=== PATIENT | female | born 1950 | race Caucasian/White ===

== ENCOUNTER 2016-12-19 12:26 | Inpatient (IN) | payer MEDICARE, MEDICAID ==
[2016-12-19 12:46] VITALS: BMI 37.2
--- NOTE | 2016-12-19 12:54 | ED PDOC ---
Arrival/HPI - General Chief Complaint: Chest Pain Time Seen by Provider: 12/19/16 12:40 Historian: Patient - History of Present Illness Narrative History of Present Illness (Text): 12/19/16 12:30 A 66 year old female, whose past medical history includes hypertension, presents to the emergency department complaining of sudden onset chest pain associated with shortness of breath. Patient states shortly after receiving epidural injection for her back pain the symptoms developed. As per Dr. Armando' s reports the patient received lidocaine with marcaine injection. Patient denies any fever, or other complaints at this time. PMD: Dr. Coelho Time/Duration: Prior to Arrival Symptom Onset: Sudden Symptom Course: Unchanged Quality: Other Activities at Onset: Rest Context: Other Past Medical History - Provider Review Nursing Documentation Reviewed: Yes - Cardiac Hx Cardiac Disorders: Yes Hx Hypertension: Yes - Pulmonary Hx Respiratory Disorders: No - Neurological Hx Neurological Disorder: No - HEENT Hx HEENT Disorder: No - Renal Hx Renal Disorder: No - Endocrine/Metabolic Hx Endocrine Disorders: Yes Hx Diabetes Mellitus Type 2: Yes - Hematological/Oncological Hx Blood Disorders: No - Integumentary Hx Dermatological Disorder: No - Musculoskeletal/Rheumatological Hx Musculoskeletal Disorders: Yes - Gastrointestinal Hx Gastrointestinal Disorders: No - Genitourinary/Gynecological Hx Genitourinary Disorders: No - Psychiatric Hx Psychophysiologic Disorder: No Hx Depression: No Hx Emotional Abuse: No Hx Physical Abuse: No Hx Substance Use: No - Surgical History Hx Section: Yes Hx Hysterectomy: Yes - Suicidal Assessment Feels Threatened In Home Enviroment: No Family/Social History - Physician Review Nursing Documentation Reviewed: Yes Family/Social History: Unknown Family HX Smoking Status: Unknown If Ever Smoked Hx Alcohol Use: No Hx Substance Use: No Hx Substance Use Treatment: No Allergies/Home Meds Allergies/Adverse Reactions: Allergies No Known Allergies Allergy (Verified 12/19/16 12:27) Home Medications: Home Meds Medication Instructions Recorded Confirmed Aspirin [Aspirin Chewable] 81 mg PO DAILY 12/19/16 12/19/16 Atenolol [Tenormin] 25 mg PO DAILY 12/19/16 12/19/16 Clopidogrel [Plavix] 75 mg PO DAILY 12/19/16 Furosemide [Lasix] 20 mg PO DAILY 12/19/16 12/19/16 Insulin Lispro Mix 75/25 [HumaLOG 50 units SC BID 12/19/16 12/19/16 Mix 75/25] Isosorbide Mononitrate [Imdur] 30 mg PO DAILY 12/19/16 12/19/16 MetFORMIN [glucoPHAGE] 500 mg PO BID 12/19/16 12/19/16 Naproxen [Naprosyn] 375 mg PO BID 12/19/16 12/19/16 Pregabalin [Lyrica] 50 mg PO BID 12/19/16 12/19/16 SITagliptin [Januvia] 100 mg PO DAILY 12/19/16 12/19/16 Spironolactone [Aldactone] 50 mg PO DAILY 12/19/16 12/19/16 amLODIPine [Norvasc] 10 mg PO DAILY 12/19/16 12/19/16 Physical Exam - Physical Exam Narrative Physical Exam (Text): - Review of Systems Constitutional: Normal. absent: Fatigue, Weight Change, Fevers Eyes: Normal ENT: Normal Respiratory: Shortness of breath. absent: Cough, Sputum Cardiovascular: Chest pain. absent: Palpitations, Syncope Gastrointestinal: Normal absent: Abdominal pain, Diarrhea, Nausea, Vomiting Genitourinary: Normal. absent: Dysuria, Frequency, Hematuria Musculoskeletal: Normal. absent: Arthralgias, Back Pain, Neck Pain Skin: Normal Neurological: Normal absent: Focal Weakness Endocrine: Normal Hemo/Lymphatic: Normal Psychiatric: Normal - Physical exam Patient appears age appropriate, speaking full sentences without difficulty - Systems Exam Head: Present: Atraumatic, Normocephalic Pupils: Present: PERRL Extraocular Muscles: Present: EOMI Conjunctiva: Present: Normal Mouth: Present: Moist Mucous Membranes Neck: Present: Normal Range of Motion. No: MIDLINE TENDERNESS, Paraspinal Tenderness Respiratory/Chest: Present: Clear to Auscultation, Good Air Exchange. No: Respiratory Distress, Accessory Muscle Use, Tachypneic Cardiovascular: Present: Regular Rate and Rhythm, Normal S1, S2, Peripheral Pulses Present. No: Murmurs Abdomen: Present: Normal Bowel Sounds, No: Tenderness, Peritoneal Signs, Rebound, Guarding, Distention Back: Present: Normal Inspection. No: Midline Tenderness, Paraspinal Tenderness Upper Extremity: Present: Normal Inspection. No: Cyanosis, Edema Lower Extremity: Present: Normal Inspection. No: Edema Neurological: Present: GCS=15, Speech Normal, cranial nerves II through XII fully intact with no cerebellar abnormality, neuro-sensory fully intact. No focal neurological deficits. Skin: Present: Warm, Dry, Normal Color. No: Rashes Lymphatic: Present: OX3, NI, NC Psychiatric: Present: Alert, Oriented x 3, Normal Insight, Normal Concentration Vital Signs Reviewed: Yes Vital Signs Temp Pulse Pulse Resp BP Pulse Ox 12/19/16 17:50 99.2 F 92 H 18 138/88 96 12/19/16 17:31 96 H 149/65 94 L 12/19/16 16:46 96 H 20 119/64 97 12/19/16 15:18 103 H 18 140/70 97 12/19/16 14:30 110 H 20 131/77 97 12/19/16 13:59 103.2 F H 12/19/16 12:59 103.2 F H 12/19/16 12:58 103.2 F H 124 H 20 129/75 94 L 12/19/16 12:35 120 H 12/19/16 12:33 100.4 F H 122 H 20 141/60 96 Temperature: Febrile Blood Pressure: Normal Pulse: Tachycardic Respiratory Rate: Normal Appearance: Positive for: Well-Appearing, Non-Toxic, Comfortable Pain Distress: None Mental Status: Positive for: Alert and Oriented X 3 Finger Stick Blood Glucose: 187 Medical Decision Making ED Course and Treatment: 12/19/16 12:30 Impression: A 66 year old female seen immediately on arrival to the emergency department. Patient with chest pain and shortness of breath that began after receiving a injection of lidocaine with marcaine. Differential Diagnosis include but are not limited to: ACS vs. PE vs. Sepsis Plan: -- EKG -- Chest X-ray -- Angio Chest CT -- Labs -- Urinalysis -- Reassess and disposition Progress Notes: EKG: Interpreted by me. Rate : 120 BPM Rhythm : Sinus tachycardia Interpretation : No ST-segment depression in the lateral inferior leads, ST- segment elevation in lead V1 and aVR 12/19/16 12:[address] Palacio. EKG sent to him. He states to repeat EKG in 5 minutes. 12/19/16 12:42 EKG: Interpreted by me. Interpretation : No evolving changes from previous EKG on arrival to emergency department. 12/19/16 12:[address] Palacio to show him the EKG in person. 12/19/16 12:[address] Palacio, who states patient is not a Code STEMI at this time, but will likely take the patient to the prestressed concrete laborer during her hospital course. He states to give the patient Aspirin, Nitroglycerin and Plavix 600mg. 12/19/16 12:[address] Palacio again, to inform him the patient has a rectal temperature of 103. He states to continue septic work up and he will hold prestressed concrete laborer unless Troponin is positive. 12/19/16 13:42 Chest X-ray: Creator : Neal Jeffries MD IMPRESSION: No active disease. 12/19/16 14:[address]: Creator : Radu Graves IMPRESSION: No evidence of pulmonary embolus. No evidence of acute pulmonary disease. Moderate mediastinal and hilar lymphadenopathy of uncertain etiology. The differential diagnosis includes but not limited to sarcoidosis and neoplasm. Mild cardiomegaly. Large cystic lesion exophytic from the upper pole of the left kidney. 12/19/16 14:[address] Coelho, who is aware and accepts the patient to his services. He states to consult ICU. ICU Paged. I have discussed the results and plan with the patient, who expresses understanding. Patient given the opportunity to ask question, all questions were answered and there is agreement with the plan to be admitted to the hospital. on reeval, pt states her cp is improved 12/19/16 14:[address] Rueda from MICU, states pt for telemetry 15:[address] Weston, states pt was supposed to get epidural injection. States he has not entered the epidural space. states pt is safe to anticoagulate and is aware she is receiving asa, plavix, heparin. - Critical Care Critical Care Minutes: 30 minutes - Lab Interpretations Lab Results: 12/19/16 12:45 12/19/16 12:45 Lab Results 12/19/16 12:45: Sodium 137, Chloride 101, Potassium 4.1, Carbon Dioxide 26, Anion Gap 14, BUN 25 H, Creatinine 0.8, Est GFR ( Amer) > 60, Est GFR ( Non-Af Amer) > 60, Random Glucose 187 H, Calcium 9.1, Total Bilirubin 0.7, AST 26, ALT 30, Alkaline Phosphatase 42, Lactate Dehydrogenase 438, Total Creatine Kinase 46, Troponin I 0.26 H*, NT-Pro-B Natriuret Pep 170, Total Protein 8.2, Albumin 4.1, Globulin 4.1, Albumin/Globulin Ratio 1.0 L 12/19/16 12:45: pO2 59 H, VBG pH 7.34, VBG pCO2 46.0, VBG HCO3 24.8, VBG Total CO2 26.2, VBG O2 Sat (Calc) 92.8 H, VBG Base Excess -1.3 L, VBG Potassium 4.2, Sodium 136.0, Chloride 106.0, Glucose 195 H, Lactate 1.9, FiO2 21.0, Venous Blood Potassium 4.2 12/19/16 12:45: PT 10.7, INR 0.99, APTT 27.5 12/19/16 12:45: WBC 12.9 H D, RBC 4.48, Hgb 12.8, Hct 38.7, MCV 86.4, MCH 28.6, MCHC 33.1, RDW 12.7, Plt Count 260, MPV 9.5, Gran % 82.8 H, Lymph % (Auto) 10.8 L, Republic % (Auto) 5.7, Eos % (Auto) 0.5 L, Baso % (Auto) 0.2, Gran # 10.69 H, Lymph # 1.4, Republic # 0.7 H, Eos # 0.1, Baso # 0.02 I have reviewed the lab results: Yes - RAD Interpretation Radiology Orders: 12/19/16 12:42 CHEST PORTABLE [RAD] Stat 12/19/16 12:46 ANGIO CHEST PE PROTOCOL [CT] Stat - Medication Orders Current Medication Orders: Aspirin (Ecotrin) 81 mg PO DAILY [facility] Atenolol (Tenormin) 25 mg PO DAILY [facility] Atorvastatin Calcium (Lipitor) 80 mg PO DIN [facility] Last Admin: 12/19/16 17:37 Dose: 80 mg Clopidogrel Bisulfate (Plavix) 75 mg PO DAILY [facility] Heparin Sodium/Sodium Chloride (Heparin 21966 Units/250ml 1/2 Normal Saline) 25 ,000 units in 250 mls @ 11.43 mls/hr IV .[id number] KAYODE; 12 UNITS/KG/HR PRN Reason: Protocol Stop: 12/20/16 03:00 Last Admin: 12/19/16 15:06 Dose: 11.43 mls/hr Insulin Detemir (Levemir) 15 unit SC BID KAYODE Insulin Human Regular (Humulin R Med) 0 units SC ACHS KAYODE PRN Reason: Protocol Lisinopril (Zestril) 5 mg PO DAILY KAYODE Discontinued Medications Acetaminophen (Tylenol 325mg Tab) Confirm Administered Dose 650 mg .ROUTE .STK- MED ONE Stop: 12/19/16 12:54 Last Admin: 12/19/16 12:59 Dose: 650 mg Re-Assess: MARIO Pain/Vitals Document 12/19/16 13:59 SS (Rec: 12/19/16 14:48 SS [id number]) Vitals Temperature (97.6 F-99.6 F) 103.2 F Temperature Source Oral Aspirin (Aspirin Chewable) 324 mg PO STAT STA Stop: 12/19/16 12:42 Last Admin: 12/19/16 12:59 Dose: 324 mg Atenolol (Tenormin) 25 mg PO STAT STA Stop: 12/19/16 16:20 Last Admin: 12/19/16 17:56 Dose: 25 mg Clopidogrel Bisulfate (Plavix) 300 mg PO STAT STA Stop: 12/19/16 12:50 Last Admin: 12/19/16 12:59 Dose: 300 mg Heparin Sodium (Porcine) (Heparin) 6,700 units 70 units/kg (6700 units) IV ONCE ONE PRN Reason: Protocol Stop: 12/19/16 14:21 Last Admin: 12/19/16 14:59 Dose: 6,700 units Sodium Chloride (Sodium Chloride 0.9%) 2,000 mls @ 2,000 mls/hr IV .Q1H STA Stop: 12/19/16 13:59 Last Admin: 12/19/16 13:00 Dose: 2,000 mls/hr Vancomycin HCl (Vancomycin 1gm) 1 gm in 250 mls @ 133.333 mls/hr IVPB STAT STA PRN Reason: Protocol Stop: 12/19/16 16:12 Last Admin: 12/19/16 14:55 Dose: 133.333 mls/hr Piperacillin Sod/Tazobactam Sod (Zosyn 4.5 Gm In Ns 100ml) 4.5 gm in 100 mls @ 200 mls/hr IVPB STAT STA PRN Reason: Protocol Stop: 12/19/16 14:49 Last Admin: 12/19/16 16:41 Dose: 200 mls/hr Sodium Chloride (Sodium Chloride 0.9%) 1,000 mls @ 1,000 mls/hr IV .Q1H STA Stop: 12/19/16 15:25 Last Admin: 12/19/16 14:50 Dose: 1,000 mls/hr Iodixanol (Visipaque 320 Mg/Ml 100 Ml) Confirm Administered Dose 100 ml IV .STK- MED ONE Stop: 12/19/16 13:17 Lisinopril (Zestril) 5 mg PO STAT STA Stop: 12/19/16 16:20 Last Admin: 12/19/16 17:55 Dose: 5 mg Nitroglycerin (Nitrostat Sl Tab) 0.3 mg SL STAT STA Stop: 12/19/16 12:42 Last Admin: 12/19/16 12:59 Dose: 0.3 mg - Scribe Statement The provider has reviewed the documentation as recorded by the William Monson Provider Scribe Attestation: All medical record entries made by the Harlanibbrandon were at my direction and personally dictated by me. I have reviewed the chart and agree that the record accurately reflects my personal performance of the history, physical exam, medical decision making, and the department course for this patient. I have also personally directed, reviewed, and agree with the discharge instructions and disposition. Disposition/Present on Arrival - Present on Arrival Any Indicators Present on Arrival: No History of DVT/PE: No History of Uncontrolled Diabetes: Yes Urinary Catheter: No History of Decub. Ulcer: No History Surgical Site Infection Following: None - Disposition Have Diagnosis and Disposition been Completed?: Yes Diagnosis: Chest pain Disposition: HOSPITALIZED Disposition Time: 14:20 Patient Plan: Admission Condition: FAIR
[2016-12-19 12:55] LABS: ADD MANUAL DIFF? NO
[2016-12-19 13:00] LABS: BASO # 0.02 K/mm3 (0.0-2.0); BASO % 0.2 % (0.0-3.0); EOS # 0.1 (0.0-0.7); EOS % 0.5 % (1.5-5.0); GRAN # 10.69 (1.4-6.5); GRAN % 82.8 % (50.0-68.0); HEMATOCRIT 38.7 % (36.0-48.0); LYMPH # 1.4 (1.2-3.4); LYMPH % 10.8 % (22.0-35.0); MEAN CELL VOLUME 86.4 fL (80.0-105.0); MEAN CORPUSCULAR HEMOGLOBIN 28.6 pg (25.0-35.0); MEAN CORPUSCULAR HGB CONC 33.1 g/dl (31.0-37.0); MEAN PLATELET VOLUME 9.5 fl (7.0-11.0); MONO # 0.7 (0.1-0.6); MONO % 5.7 % (1.0-6.0); PLATELET COUNT 260 10^3/uL (120.0-450.0); RED CELL DISTRIBUTION WIDTH 12.7 % (11.5-14.5); WHITE BLOOD COUNT 12.9 10^3/ul (4.5-11.0)
[2016-12-19] MEDS ORDERED: Sodium Chloride 0.9% 2,000 ML IV STA (13:00)
[2016-12-19 13:01] LABS: VENOUS BLOOD GAS BASE EXCESS -1.3 mmol/L (0.0-2.0); VENOUS BLOOD PH 7.34 (7.32-7.43)
[2016-12-19 13:10] LABS: INR 0.99 (0.93-1.08); PARTIAL THROMBOPLASTIN TIME 27.5 Seconds (23.7-30.8)
[2016-12-19 13:11] LABS: ALKALINE PHOSPHATASE 42 U/L (38-133); ALT/SGPT 30 U/L (7-56); AST/SGOT 26 U/L (15-39); BILIRUBIN,TOTAL 0.7 mg/dL (0.2-1.3); BLOOD UREA NITROGEN 25 mg/dL (7-21); CALCIUM 9.1 mg/dL (8.4-10.5); CARBON DIOXIDE 26 mmol/L (21-33); CHLORIDE 101 mmol/L (98-107); GFR AFRICAN-AMERICAN > 60; GLUCOSE,RANDOM 187 mg/dL (70-110); POTASSIUM 4.1 mmol/L (3.6-5.0); SODIUM 137 mmol/L (132-148); TOTAL PROTEIN 8.2 g/dL (5.8-8.3)
[2016-12-19] MEDS ORDERED: Iodixanol 320 MG/ML 100 ML BOTTLE IV ONE (13:16)
--- NOTE | 2016-12-19 13:42 | RAD ---
HISTORY: cough COMPARISON: No prior. FINDINGS: LUNGS: No active pulmonary disease. PLEURA: No significant pleural effusion identified, no pneumothorax apparent. CARDIOVASCULAR: Mild vascular congestion. Heart is normal in size OSSEOUS STRUCTURES: No significant abnormalities. VISUALIZED UPPER ABDOMEN: Normal. OTHER FINDINGS: None. IMPRESSION: No active disease.
[2016-12-19 13:58] LABS: TROPONIN I 0.26 ng/mL
--- NOTE | 2016-12-19 14:07 | CT ---
PROCEDURE: CT Chest with contrast (Pulmonary Angiogram) HISTORY: r/o PE COMPARISON: None available. TECHNIQUE: Axial computed tomography images were obtained of the chest in the pulmonary arterial phase of enhancement. Coronal and sagittal reformatted images were created and reviewed. Intravenous contrast dose: 100 mL Visipaque 320 Radiation dose: Total exam DLP = 747.33 mGy-cm. This CT exam was performed using one or more of the following dose reduction techniques: Automated exposure control, adjustment of the mA and/or kV according to patient size, and/or use of iterative reconstruction technique. FINDINGS: PULMONARY ARTERIES: Unremarkable. No pulmonary embolism. AORTA: No acute findings. No thoracic aortic aneurysm. LUNGS: Unremarkable. No nodule, mass or pulmonary consolidation. PLEURAL SPACES: Unremarkable. No effusion or pneuomothorax. HEART: Mild hepatomegaly is seen. No significant pericardial effusion. LYMPH NODES: There are moderate all mediastinal and bilateral hilar lymphadenopathy noted. BONES, CHEST WALL: Unremarkable. No fracture or destructive lesion OTHER FINDINGS: UnremarkableDiffuse esophageal mild mucosal thickening is noted. A Large cystic lesions seen at the upper pole of the left kidney. IMPRESSION: No evidence of pulmonary embolus. No evidence of acute pulmonary disease. Moderate mediastinal and hilar lymphadenopathy of uncertain etiology. The differential diagnosis includes but not limited to sarcoidosis and neoplasm. Mild cardiomegaly. Large cystic lesion exophytic from the upper pole of the left kidney.
[2016-12-19] MEDS ORDERED: Piperacill/Tazo 4.5gm in NS 4.5 GM/100 ML BAG IVPB STA (14:20)
[2016-12-19] MEDS ORDERED: Vancomycin 1gm in NS 250ml 1 GM/250 ML BAG IVPB STA (14:20)
[2016-12-19] MEDS ORDERED: Sodium Chloride 0.9% 1,000 ML IV STA (14:26)
[2016-12-19] MEDS ORDERED: Heparin25000 units/250ml 1/2NS 25,000 UNITS/250 ML BAG IV SCH (14:30)
--- NOTE | 2016-12-19 15:07 | CARD ---
APPROVED REPORT EKG Measurement Heart [id number] [place] [id number] <Conclusion> Sinus tachycardia Acute ALMI SONDRA buchanan c/w ischemia
--- NOTE | 2016-12-19 15:08 | CARD ---
APPROVED REPORT EKG Measurement Heart [id number] <Conclusion> Sinus tachycardia Acute ALMI STTW changes c/w ischemia
--- NOTE | 2016-12-19 17:31 | CT ---
PROCEDURE: CT Lumbar Spine without contrast HISTORY: back pain COMPARISON: None. TECHNIQUE: Axial computed tomography images were obtained of the lumbar spine without the use of intravenous contrast. Coronal and sagittal reformatted images were created and reviewed. Radiation dose: Total exam DLP = 1095 mGy-cm. This CT exam was performed using one or more of the following dose reduction techniques: Automated exposure control, adjustment of the mA and/or kV according to patient size, and/or use of iterative reconstruction technique. FINDINGS: VERTEBRAE: Unremarkable. No fracture. Normal alignment. DISCS/SPINAL CANAL/NEURAL FORAMINA: L1-2: Unremarkable. L2-3: Unremarkable. L3-4: Unremarkable. L4-5: Disc bulge with posterior ridging and slight grade 1 anterolisthesis likely due to ligamentous laxity. No gross spondylolysis. Severe facet arthropathy contributes to severe central canal stenosis and left foraminal stenosis.. L5-S1: Unremarkable. PARASPINAL SOFT TISSUES: Unremarkable. OTHER FINDINGS: None. IMPRESSION: Disc bulge with posterior ridging and slight grade 1 anterolisthesis likely due to ligamentous laxity. No gross spondylolysis. Severe facet arthropathy contributes to severe central canal stenosis and left foraminal stenosis..
--- NOTE | 2016-12-19 18:02 | CP.PCM.CON ---
<oMhit CARRILLO,Jacklyn Villarreal - Last Filed: 12/19/16 18:42> Meds Allergies/Adverse Reactions: Allergies Allergy/AdvReac Type Severity Reaction Status Date / Time No Known Allergies Allergy Verified 12/19/16 12:27 - Medications Medications: Current Medications Aspirin (Ecotrin) 81 mg PO DAILY [facility] Atenolol (Tenormin) 25 mg PO DAILY [facility] Atorvastatin Calcium (Lipitor) 80 mg PO DIN [facility] Last Admin: 12/19/16 17:37 Dose: 80 mg Clopidogrel Bisulfate (Plavix) 75 mg PO DAILY [facility] Heparin Sodium/Sodium Chloride (Heparin 78256 Units/250ml 1/2 Normal Saline) 25 ,000 units in 250 mls @ 11.43 mls/hr IV .[id number] [facility]; 12 UNITS/KG/HR PRN Reason: Protocol Stop: 12/20/16 03:00 Last Admin: 12/19/16 15:06 Dose: 11.43 mls/hr Lisinopril (Zestril) 5 mg PO DAILY [facility] Results - Vital Signs Recent Vital Signs: Last Vital Signs Temp 99.2 F 12/19/16 17:50 Pulse 92 H 12/19/16 17:50 Resp 18 12/19/16 17:50 BP 138/88 12/19/16 17:50 Pulse Ox 96 12/19/16 17:50 - Labs Result Diagrams: 12/19/16 12:45 12/19/16 12:45 Labs: Laboratory Results - last 24 hr 12/19/16 16:00 Influenza Typ A,B (EIA) Negative for flu a/b Attending/Attestation - Attestation I have personally seen and examined this patient.: Yes I have fully participated in the care of the patient.: Yes I have reviewed all pertinent clinical information: Yes Notes (Text): 12/19/16 18:42 66 y/o F who presented after Epidural injection for back pain. Post procedure had chest pain/ sob and fevers. Unclear reason for the the conglomerate of issues. NSTEMI noted, on asprin, plavix and Heparin started with cardiology consult placed. Back pain stable and imaging on CT showing bulged disk Fevers noted with mild WBC elevation w/ sepsis . On Empiric abx and cx drawn. Unclear if this is a reaction to the epidural . After iv fluids and abx given if patient worsens and requires ICU please call back. cc time 45 min <Zeenat Fitzgerald - Last Filed: 12/20/16 03:25> History of Present Illness - History of Present Illness History of Present Illness: ICU consult note for Dr. Jacklyn Rueda Consult reason: possible NSTEMI, possible sepsis, s/p analgesic epidural injection today Pt is a 66F with PMH of HTN, DM2, and chronic back pain with radiculopathy who presented to the ED after experiencing chest pain immediately after an analgesic epidural injection on the right lumbar foramina this afternoon. Patient underwent the injection by Dr. Vikram Weston for her chronic lower back pain and leg pain. Dr. Weston states that he did not achieve full depth of injection before patient started having symptoms. She was sent to the ED from the office, where was found to have a rectal temperature of 103.2, tachycardia in the 120's, and an EKG showing possible NSTEMI. Trop was elevated to 0.26, WBC 12.9, lactate 1.9. CXR and CT of the chest showed no acute pathology. Cardio was consulted and patient was started on plavix and ASA but was not brought to geophysical laboratory supervisor due to possible sepsis. ICU was consulted to evaluate the patient. Patient states the her chest pain persists with BL shoulder pain, R abdominal pain, dysuria, constipation, and chronic lower back pain that radiates to the legs bilaterally. Patient admits that shoulder pain is chronic. Patient denies and SOB, cough, fever, chills, nausea, vomiting, diarrhea, melena or hematochezia. patient denies any other symptoMS Review of Systems - Review of Systems All systems: reviewed and no additional remarkable complaints except ( PER HPI ) - Constitutional Constitutional: As Per HPI. absent: Headache - EENT Nose/Mouth/Throat: Sore Throat. absent: Nasal Congestion - Cardiovascular Cardiovascular: Chest Pain, Chest Pain at Rest - Respiratory Respiratory: absent: Cough, Dyspnea, Hemoptysis - Gastrointestinal Gastrointestinal: As Per HPI, Abdominal Pain (chronic) - Genitourinary Genitourinary: Dysuria. absent: Hematuria - Musculoskeletal Musculoskeletal: As Per HPI, Muscle Cramps - Neurological Neurological: Weakness (left hand chronic weakness). absent: Dizziness, Numbness, Tingling Past Patient History - Past Social History Smoking Status: Unknown If Ever Smoked - CARDIAC Hx Cardiac Disorders: Yes Hx Hypertension: Yes - PULMONARY Hx Respiratory Disorders: No - NEUROLOGICAL Hx Neurological Disorder: No - HEENT Hx HEENT Problems: No - RENAL Hx Chronic Kidney Disease: No - ENDOCRINE/METABOLIC Hx Endocrine Disorders: Yes Hx Diabetes Mellitus Type 2: Yes - HEMATOLOGICAL/ONCOLOGICAL Hx Blood Disorders: No - INTEGUMENTARY Hx Dermatological Problems: No - MUSCULOSKELETAL/RHEUMATOLOGICAL Hx Musculoskeletal Disorders: Yes - GASTROINTESTINAL Hx Gastrointestinal Disorders: No - GENITOURINARY/GYNECOLOGICAL Hx Genitourinary Disorders: No - PSYCHIATRIC Hx Psychophysiologic Disorder: No Hx Depression: No Hx Emotional Abuse: No Hx Physical Abuse: No Hx Substance Use: No - SURGICAL HISTORY Hx Section: Yes Hx Hysterectomy: Yes Meds - Medications Medications: Current Medications Aspirin (Ecotrin) 81 mg PO DAILY [facility] Atenolol (Tenormin) 25 mg PO DAILY [facility] Atorvastatin Calcium (Lipitor) 80 mg PO DIN [facility] Last Admin: 12/19/16 17:37 Dose: 80 mg Clopidogrel Bisulfate (Plavix) 75 mg PO DAILY [facility] Heparin Sodium/Sodium Chloride (Heparin 79078 Units/250ml 1/2 Normal Saline) 25 ,000 units in 250 mls @ 11.43 mls/hr IV .[id number] [facility]; 12 UNITS/KG/HR PRN Reason: Protocol Stop: 12/20/16 03:00 Last Admin: 12/19/16 15:06 Dose: 11.43 mls/hr Lisinopril (Zestril) 5 mg PO DAILY [facility] Physical Exam - Constitutional Appears: Well, Non-toxic, No Acute Distress - Head Exam Head Exam: ATRAUMATIC, NORMOCEPHALIC - Eye Exam Eye Exam: Normal appearance, Scleral icterus. absent: Conjunctival injection - ENT Exam ENT Exam: Mucous Membranes Moist, Normal Oropharynx - Respiratory Exam Respiratory Exam: Clear to Auscultation Bilateral, NORMAL BREATHING PATTERN. absent: Accessory Muscle Use, Respiratory Distress - Cardiovascular Exam Cardiovascular Exam: Tachycardia, REGULAR RHYTHM, +S1, +S2, Systolic Murmur (III / systolic murmur of LSB) - GI/Abdominal Exam GI & Abdominal Exam: Distended (moderately), Normal Bowel Sounds, Soft, Tenderness (RUQ>RLQ) - Extremities Exam Extremities exam: Positive for: pedal pulses present. Negative for: calf tenderness, pedal edema - Back Exam Back exam: CVA tenderness (L), vertebral tenderness. absent: CVA tenderness (R) Additional comments: band-aid over puncture/injection site in the R lumbar/sacral junction - Neurological Exam Neurological exam: Alert, CN II-XII Intact, Oriented x3 - Psychiatric Exam Psychiatric exam: Anxious, Normal Affect - Skin Skin Exam: Dry, Intact, Normal Color, Warm Results - Vital Signs Recent Vital Signs: Last Vital Signs Temp 103.2 F H 12/19/16 13:59 Pulse 96 H 12/19/16 17:31 Resp 20 12/19/16 16:46 BP 149/65 12/19/16 17:31 Pulse Ox 94 L 12/19/16 17:31 - Labs Result Diagrams: 12/19/16 12:45 12/19/16 12:45 Labs: Laboratory Results - last 24 hr 12/19/16 16:00 Influenza Typ A,B (EIA) Negative for flu a/b Assessment & Plan - Assessment and Plan (Free Text) Assessment: 66F with PMH of HTN, DM2, and chronic back pain s/p injection with lidocaine and marcaine in the lumbar sacral junction with chest pain, tachycardia, and fever. ICU consulted for NSTEMI and possible sepsis with tachycardia, fever, and mild leukocystosis. Patient is stable in the ER with minimal O2 supplementation via Nasal canula. Patient is awake, alert, and orientedx3 with no respiratory distress, able to speak without dyspnea. Patient's lactic acid was WNL. Blood cultures were sent. It is unclear if patient's symptoms are in some way a sequela of the foraminal epidural procedure this afternoon, or if this is a NSTEMI or a sepsis picture. Patient should undergo sepsis work up, scan of the lumbar spine, and close cardiac and ID follow up. At this time patient presentation does not warrant an ICU admission. Please call back the ICU if clinical picture worsens Thank you for this consult Patient seen and discussed with Dr. Jacklyn Fitzgerald, PGY1
--- NOTE | 2016-12-19 20:13 | CON ---
DATE: 12/19/2016 REASON FOR CONSULTATION: Cardiac evaluation for code ST-elevation myocardial infarction. BRIEF CLINICAL HISTORY: A 66-year-old female with a past medical history significant for diabetes, hypertension, hyperlipidemia, obesity, who was in Dr. Vikram Weston's office getting epidural injection. After that the patient developed right-sided chest pain, so transferred here. EKG shows ST depression inferior lead and elevation 1/2 mm elevation in anterior lead, so code STEMI was about to be activated and I was called. They looked carefully, it does not fit in the criteria of code STEMI protocol. Also, patient had a recent history of epidural injection. So was decided to treat as non-STEMI and close monitor. Repeat EKG showed some resolution of ST-T changes. The patient has very atypical chest pain and tenderness on the right side. The troponin was positive ; by that time, the troponin came positive. On further interrogation family member though patient speaks Persian, does not speak Australian, who got the injection of the back, so called Dr. Weston on cellphone. He said the patient had epidural. Discussed with him whether it is safe to give heparin and blood thinner, he said he did not go all the way to the epidural so no risk of bleeding into the spinal canal and safely the patient can be heparinized. So patient was started on heparin. The patient still has chest pain with very tenderness and reproducible on the right side. I tried to contact the daughter named ramonita at telephone #[phone], as given by the of the patient who also speaks Persian, none of the family members speak so far Australian. Information could not be obtained in detail. Information obtained from the chart. The patient has history of diabetes, some history of heart problem. Mentioned small heart problem, was on Plavix which Dr. Vikram Weston held for 10 days before epidural injection and today the patient got only lidocaine, Marcaine and some morphine epidural but he said he did not go all the way into the spinal canal, it is safe to start heparin. PAST MEDICAL HISTORY: Significant for diabetes, hypertension, questionable history of coronary artery disease, questionable history of a stent, on Plavix. REVIEW OF SYSTEMS: As per HPI. SOCIAL HISTORY: Denies smoking. Denies any history of alcohol abuse. CURRENT MEDICATIONS: The patient at home was taking Lyrica, Naprosyn, aspirin, Januvia, metformin, Lasix, isosorbide mononitrate, insulin, amlodipine, spironolactone, atenolol and Plavix. REVIEW OF SYSTEMS: As per HPI. PHYSICAL EXAMINATION: VITAL SIGNS: As follows: Temperature 103, heart rate 110, blood pressure 131/ 77. HEENT: PERRLA. Extraocular muscles intact. NECK: Supple. No carotid bruits. No thyromegaly. CHEST: Clear to auscultation. HEART: S1, S2 regular. ABDOMEN: Soft. EXTREMITIES: Clubbing and cyanosis negative. EKG shows normal sinus, 0.[address] elevation anteriorly but ST depression in II, III, aVF. LABORATORY DATA: Blood workup as follows: WBC 12.9, hemoglobin 12.8, hematocrit 38.7, platelet count 260. Chemistry shows sodium 137, potassium 4.0 , chloride 101, carbon dioxide 26, anion gap of 14, BUN 25, creatinine was 0.8. Troponin 0.26. IMPRESSION: Sepsis, 103 fever, sinus tachycardia, that is why probably rate related has some ST changes. After repeating the EKG with heart rate 101, ST segment came down. The patient is not a candidate at this point to take ST elevation, chest pain is atypical and fever. The patient has fever and WBC count was 13,000. RECOMMENDATION: We will start broad spectrum antibiotics. Start heparin. Discussed with Dr. Vikram Weston, said okay to start heparin and Plavix. Will start heparin, Plavix and depending upon clinical will consider taking to cardiac catheterization lab tomorrow depending upon the patient's condition. We will follow up CPK, troponin and get an EKG repeat in the morning, get echo. Will get lipid profile, TSH, hemoglobin A1c. We will start some nitrates and start beta yvon as tolerated. We will follow with you.Will treat agressively as NSTEMI for now and follow serail CPK/troponin with a plan to ammunition assembly ii laborer in am Thank you, Dr. Coelho, for providing the opportunity in taking care of this patient. Discussed with the patient's , who understands a little bit of Australian but cannot talk in Australian, but he understand. Also left a message to the daughter,Ramonita on telephone #[phone]. Angel Palacio MD cc: [id number] TT: 12/19/2016 20:12:20 Confirmation # [id number] Dictation # [id number] jn MTDD
[2016-12-19 21:29] LABS: TROPONIN I 6.82 ng/mL
[2016-12-19] MEDS: Insulin Reg-MEDIUM-Coverage SC SCH (23:04)
[2016-12-19] MEDS: Insulin Detemir 100 units/ml Vial (Levemir) SC SCH (23:05)
[2016-12-20 07:01] LABS: ALB/GLOB RATIO 0.9 (1.1-1.8); ALKALINE PHOSPHATASE 35 U/L (38-133); ALT/SGPT 38 U/L (7-56); AST/SGOT 57 U/L (15-39); BILIRUBIN,TOTAL 0.4 mg/dL (0.2-1.3); BLOOD UREA NITROGEN 20 mg/dL (7-21); CALCIUM 8.6 mg/dL (8.4-10.5); CARBON DIOXIDE 23 mmol/L (21-33); CHLORIDE 107 mmol/L (98-107); CHOLESTEROL 156 mg/dL (130-200); GFR AFRICAN-AMERICAN > 60; GLUCOSE,RANDOM 235 mg/dL (70-110); SODIUM 138 mmol/L (132-148); TOTAL PROTEIN 7.2 g/dL (5.8-8.3)
[2016-12-20 07:21] LABS: TROPONIN I 4.89 ng/mL
[2016-12-20 07:22] LABS: ADD MANUAL DIFF? NO
[2016-12-20 07:26] LABS: BASO # 0.01 K/mm3 (0.0-2.0); BASO % 0.1 % (0.0-3.0); GRAN # 5.38 (1.4-6.5); GRAN % 72.7 % (50.0-68.0); LYMPH # 1.5 (1.2-3.4); LYMPH % 20.2 % (22.0-35.0); MEAN CELL VOLUME 86.1 fL (80.0-105.0); MEAN CORPUSCULAR HEMOGLOBIN 28.2 pg (25.0-35.0); MEAN CORPUSCULAR HGB CONC 32.8 g/dl (31.0-37.0); MEAN PLATELET VOLUME 9.9 fl (7.0-11.0); MONO # 0.5 (0.1-0.6); PLATELET COUNT 268 10^3/uL (120.0-450.0); WHITE BLOOD COUNT 7.4 10^3/ul (4.5-11.0)
[2016-12-20 07:42] LABS: MAGNESIUM 2.1 mg/dL (1.7-2.2); PHOSPHOROUS 3.1 mg/dL (2.5-4.5)
[2016-12-20] MEDS: Insulin Reg-MEDIUM-Coverage SC SCH ×3 (07:53→17:48)
[2016-12-20] MEDS ORDERED: cefTRIAXone 2 GM IN NS 2 GM/100 ML BAG IVPB SCH (10:00)
--- NOTE | 2016-12-20 10:00 | HP ---
CHIEF COMPLAINT: A 66-year-old female who came into the hospital after feeling sweaty, dizzy. Came to the ER for evaluation after a trial of epidural injection. HISTORY OF PRESENT ILLNESS: This is a 66-year-old female, insulin-dependent diabetes, type 2, using insulin; morbid obesity, hypertension, hypercholesterolemia, has chronic back pain, seen by intervent ional radiologist for epidural injection for the 5th time; however, while he is putting the needle, t he patient felt some pain, not severe, but she felt nauseous, sweaty, diaphoretic and dizzy, and was brought into the Emergency Room for evaluation. Denied any chest pain, denied any short of breath at this time. The patient came to the ER, was evaluated and initial blood work shows positive troponin 0.26 and was admitted for telemetry for evaluations. She has no chest pain, no shortness of breath, no nausea, no vomiting, no fever, no chills. She was not feeling sick before the epidural injection s. PAST MEDICAL HISTORY: As I mentioned, diabetes type 2, using insulin. She does have leg edema. She has hypertension. She has neuropathy and chronic neck pain, chronic back pain. HOME MEDICATIONS: Lyrica 50 mg b.i.d., Naprosyn 375 b.i.d., aspirin 81 mg once a day, Januvia 100 mg once a day, metformin 500 b.i.d., Lasix 20 p.o. daily, Imdur 30 mg p.o. daily; 75/25 or 70/30 insuli n, she takes 40 units in the morning, 30 units at night; amlodipine 10 mg once a day, Aldactone 50 mg p.o. daily, Tenormin 25 mg p.o. daily and Plavix 75 mg p.o. daily. ALLERGIES: No known allergy. REVIEW OF SYSTEMS: As in the present illness, she does complain of chronic back pain, numbness, shane pheral neuropathy symptoms of lower extremity/upper extremities, feels weak with exertions, she is mo rbidly obese. PHYSICAL EXAMINATION: GENERAL: The patient is on telemetry unit. VITAL SIGNS: Temperature 103 oral, heart rate 103, blood pressure 140/70, respirations 18, saturatio n 97%. HEAD AND NECK: Normal. No JVD, no thyromegaly. CHEST: Clear. CARDIAC: First and second sounds are normal. ABDOMEN: Soft, nontender. EXTREMITIES: No edema. NEUROLOGIC: Normal. The patient is morbidly obese. EKG: There were nonspecific ST-T changes, sinus rhythm. LABORATORY DATA: White count 12.9, hemoglobin 12.3, hematocrit 38.7, platelets 260. Her chemistry shows sodium of 137, potassium 4.1, chloride 101, bicarbonate 26, BUN 25, creatinine 0.8, blood sugar 187, calcium 9.1. Liver function test is normal. Troponin 0.26. IMAGIN. The patient also had a chest CT done for PE and was negative, and there was not any reported infi ltrates and unremarkable. 2. She also had electrocardiogram which was read and ST-T changes, possible ischemia. IMPRESSION AND PLAN: 1. Will admit the patient. This 66-year-old female came in with some sort of dizzy, syncope, positi ve troponin. Dr. Palacio/cardiology consult consulted and the patient was admitted. IV heparin given. The patient evaluated by him and he admitted the patient for IV heparin and Plavix, aspirin and admi t her to telemetry. Repeat laboratory. Also patient got a dose of Zosyn. Culture was sent and mariel ent was treated as acute [id number] myocardial infarction. Will continue follow up on that and will repeat the blood work in the morning. 2. Diabetes. Resume insulin plus insulin coverage. 3. For hypertension, will get Dr. Palacio to evaluate for beta yvon role in this case and will follo w up clinically. Vikram Coelho MD cc: [phone] TT: 12/20/2016 09:38:19 mn 12/20/2016 08:59:56
--- NOTE | 2016-12-20 10:18 | PN ---
DATE: 12/20/2016 REASON FOR CONSULTATION AND FOLLOWUP: Cardiac evaluation for [id number] myocardial infarction, a cute coronary syndrome. BRIEF CLINICAL HISTORY: A 66-year-old female with a past medical history significant for diabetes, h ypertension, hyperlipidemia, history of nonobstructive coronary artery disease, status post cardiac c atheterization 10 years ago at [facility] from the right femoral area, found to be ne gative. Admitted yesterday after having pain injection, possible epidural, transferred here because of the chest pain, found to be ST-T changes, which later found to be patient was fever, septic, 103 f ever, so decided not to take to the terrazzo laborer and start aggressive medical treatment, then plan to [place] e to the terrazzo laborer. This morning, discussed the patient with the nurse, Macedonian-speaking, , as th e patient does not speak Setswana and explained the patient's condition. The patient is scheduled for cardiac catheterization today. Denies any chest pain, shortness of breath, any palpitation. PHYSICAL EXAMINATION: VITAL SIGNS: Temperature afebrile, heart rate 61, blood pressure 154/71, afebrile. HEENT: PERRLA. Extraocular muscles intact. NECK: Supple. No carotid bruits. No thyromegaly. CHEST: Clear to auscultation. HEART: S1, S2 regular. ABDOMEN: Soft. EXTREMITIES: Clubbing, cyanosis negative. WBC 7.4, hemoglobin 11.8, hematocrit 36, platelet count 268. Chemistry shows sodium 130, potassium 4 , chloride 107, carbon dioxide 23, anion gap of 12, BUN 20, creatinine 0.7. Troponin 4.89. IMPRESSION: Acute coronary syndrome, unstable angina, troponin trend down, fever, now is afebrile, W BC came down, status post epidural injection. RECOMMENDATION: Discussed with Dr. Vikram Weston. The patient is safe to start anticoagulation and take to the terrazzo laborer because patient had recently epidural injection, but he mentioned he did not go all the way to the epidural space. Discussed with the patient through the bread wrapper operator, left a renae ge to the daughter, discussed with the . Will take to the terrazzo laborer. Continue Plavix and aspi rin. Heparin was discontinued at 3 a.m. Continue Plavix. Continue aspirin and Plavix. Continue Te normin. Further recommendation after cardiac catheterization. Risks, benefits, alternatives discuss ed with the patient. The patient agreed. We will proceed for cardiac catheterization. Further emperatriz mmendation after cardiac catheterization. Discussed with Dr. Coelho. Thank you, Dr. Coelho, for providing us the opportunity in taking care of the patient. Angel Palacio MD cc: [id number] TT: 12/20/2016 10:18:27 Confirmation # [id number] Dictation # [id number]
[2016-12-20] MEDS: Insulin Detemir 100 units/ml Vial (Levemir) SC SCH ×2 (10:19→17:46)
[2016-12-20] MEDS ORDERED: Lidocaine 2% Inj (20ml) ONE (10:20)
[2016-12-20] MEDS ORDERED: Midazolam 2 MG/2 ML VIAL ONE (10:23)
[2016-12-20] MEDS ORDERED: Nitroglycerin 50mg in D5W 50 MG/250 ML BOTTLE IV ONE (10:32)
[2016-12-20] MEDS ORDERED: Bacitracin 500 Units/gm Oint Foilpak UD TOP ONE (11:32)
[2016-12-20] MEDS ORDERED: Sodium Chloride 0.9% 1,000 ML IV SCH (11:45)
--- NOTE | 2016-12-20 12:53 | CARD ---
APPROVED REPORT Procedure(s) performed: Left Heart Catheterization HISTORY The patient is a 66 year-old female with a history of : diabetes mellitus with insulin treatment , previous diagnostic cath, hypertension , dyslipidemia , Admitted with tachycardia, Sepsis after Epidural injection 103.2 temp, dynamic ST T changes, Reproducibile right sided chest pain, SOB and next day troponini 6.82. INDICATION The indication(s) include : non-STEMI , chest pain, dyspnea. CASE TECHNIQUE The was infiltrated with 2% Lidocaine subcutaneous anesthesia. A 6 Fr Glidesheath (Radial) sheath was inserted into the left radial artery without difficulty. Coronary angiography was performed using coronary diagnostic catheters. The left coronary system was accessed and visualized with a Diagnostic ,5 Fr JL 3.5 catheter. The right coronary system was accessed and visualized with a Diagnostic ,5 Fr x 100 cm Kingsley 3.5 (Radial) catheter. The left ventricle was accessed and visualized with a 6 Fr AL 1 catheter. Left ventricular/Aortic Valve gradient assessed on pullback. Left ventriculogram was performed in GURROLA projection. Closure device was deployed with a Fr TR Band (Large) without any complications. The patient tolerated the procedure well and there were no complications associated with the procedure. Vessel Analysis The patient's coronary anatomy is right dominant. The left main coronary artery is a large size vessel with intimal irregularities and without significant stenosis. The left main bifurcates to the left anterior descending and circumflex. The left anterior descending artery is a large size vessel with intimal irregularities and without significant stenosis. The first diagonal branch is a medium size vessel without significant stenosis. The second diagonal branch is a small size vessel with diffuse calcification noted throughout this vessel and without significant stenosis. The circumflex artery is a medium size vessel with diffuse calcification noted throughout this vessel and without significant stenosis. There is a 40-50% stenosis in the distal segment. The first obtuse marginal branch is a medium size vessel with diffuse calcification noted throughout this vessel and without significant stenosis. The right coronary artery is a medium size vessel with diffuse calcification noted throughout this vessel and without significant stenosis. The right posterior descending artery is a medium size vessel with diffuse calcification noted throughout this vessel and with significant stenosis. There is a 100% stenosis in the distal segment. Very distally R PDA occluded, possibly DIETARY DIRECTOR and small calbre vessel <1.5 mm, not suitable for PCI Left Ventricle The left ventricle is normal in size with normal contractility. There was no cardiomyopathy. The left ventricular ejection fraction is estimated to be 55-60%. The left ventricular end diastolic pressure is 30-35 mmHg. 10 mm gradient across Aortic valve on pullback, peak to peak. Conclusion Distal small vessel CAD. involving distal Cx 40-50% diffusely diseased, Very Distal R PDA 100% occluded, possibly DIETARY DIRECTOR, Less than 1.5 mm in Diameter, Not suitable for PCI. Preserved Lv Fx. EF-55-60% Mild 10 mm gradient across aotic valve, peak to peak on pul back. Recommendations Cardiac Rehabilitation Referral Aggressive Medical TherapyCardiac Risk Reduction Program Weight Loss Reduction Program CC; Ellie Gonsales/ Vikram Weston.
[2016-12-20] MEDS ORDERED: Bacitracin 500 Units/gm Oint Foilpak UD ONE (14:03)
--- NOTE | 2016-12-20 14:36 | CP.PCM.CON ---
History of Present Illness - History of Present Illness History of Present Illness: 66 year old female with PMH of HTN, DM, obesity with BMI 38, chronic back pain with radiculopathy came in to [facility] after sudden onset of heavy chest pain after steroid injection to her back. The injection was not fully done when the patient developed symptoms. Together with the chest pain, the patient also developed difficulty breathing and some nausea. She did not complain of sore throat or rhinorrhea, no body aches, no diarrhea, no vomiting, no headache or dizziness, no blurring of vision, no dysuria or hematuria, no cough. She did not have fever prior to the episode but she had a temperature of 103.2 F in the ED. Because of this, Infectious diseases consult is requested to further evaluate and manage. Review of Systems - Review of Systems All systems: reviewed and no additional remarkable complaints except (as per HPI ) Past Patient History - Past Social History Smoking Status: Unknown If Ever Smoked - CARDIAC Hx Cardiac Disorders: Yes Hx Hypertension: Yes - PULMONARY Hx Respiratory Disorders: No - NEUROLOGICAL Hx Neurological Disorder: No - HEENT Hx HEENT Problems: No - RENAL Hx Chronic Kidney Disease: No - ENDOCRINE/METABOLIC Hx Endocrine Disorders: Yes Hx Diabetes Mellitus Type 2: Yes - HEMATOLOGICAL/ONCOLOGICAL Hx Blood Transfusions: No Hx Blood Transfusion Reaction: No - INTEGUMENTARY Hx Dermatological Problems: No - MUSCULOSKELETAL/RHEUMATOLOGICAL Hx Musculoskeletal Disorders: Yes - GASTROINTESTINAL Hx Gastrointestinal Disorders: No - GENITOURINARY/GYNECOLOGICAL Hx Genitourinary Disorders: No - PSYCHIATRIC Hx Psychophysiologic Disorder: No Hx Depression: No Hx Emotional Abuse: No Hx Physical Abuse: No Hx Substance Use: No - SURGICAL HISTORY Hx Surgeries: Yes - ANESTHESIA Hx Anesthesia Reactions: No Hx Malignant Hyperthermia: No Meds Allergies/Adverse Reactions: Allergies Allergy/AdvReac Type Severity Reaction Status Date / Time No Known Allergies Allergy Verified 12/19/16 12:27 - Medications Medications: Current Medications Aspirin (Ecotrin) 81 mg PO DAILY [facility] Last Admin: 12/20/16 08:03 Dose: 81 mg Atenolol (Tenormin) 25 mg PO DAILY [facility] Last Admin: 12/20/16 08:03 Dose: 25 mg Atorvastatin Calcium (Lipitor) 80 mg PO DIN [facility] Last Admin: 12/19/16 17:37 Dose: 80 mg Clopidogrel Bisulfate (Plavix) 75 mg PO DAILY [facility] Last Admin: 12/20/16 08:02 Dose: 75 mg Ceftriaxone Sodium (Rocephin 2 Gm Ivpb) 2 gm in 100 mls @ 100 mls/hr IVPB DAILY [facility] PRN Reason: Protocol Insulin Detemir (Levemir) 15 unit SC BID [facility] Last Admin: 12/19/16 23:05 Dose: 15 unit Insulin Human Regular (Humulin R Med) 0 units SC ACHS [facility] PRN Reason: Protocol Last Admin: 12/20/16 07:53 Dose: Not Given Lisinopril (Zestril) 5 mg PO DAILY [facility] Physical Exam - Constitutional Appears: Non-toxic, No Acute Distress - Head Exam Head Exam: NORMAL INSPECTION - ENT Exam ENT Exam: Mucous Membranes Moist - Neck Exam Neck exam: Negative for: Lymphadenopathy, Meningismus - Respiratory Exam Respiratory Exam: Decreased Breath Sounds - Cardiovascular Exam Cardiovascular Exam: +S1, +S2 - GI/Abdominal Exam GI & Abdominal Exam: Soft. absent: Tenderness Results - Vital Signs Recent Vital Signs: Last Vital Signs Temp 98 F 12/20/16 00:55 Pulse 61 12/20/16 08:03 Resp 19 12/20/16 00:55 BP 154/71 H 12/20/16 08:03 Pulse Ox 96 12/19/16 17:50 - Labs Result Diagrams: 12/20/16 07:00 12/20/16 06:00 Labs: Laboratory Results - last 24 hr 12/19/16 12/19/16 12/19/16 16:00 20:55 20:55 WBC RBC Hgb Hct MCV MCH MCHC RDW Plt Count MPV Gran % Lymph % (Auto) Emery % (Auto) Eos % (Auto) Baso % (Auto) Gran # Lymph # Emery # Eos # Baso # APTT 75.5 H* Sodium Potassium Chloride Carbon Dioxide Anion Gap BUN Creatinine Est GFR ( Amer) Est GFR (Non-Af Amer) Random Glucose Calcium Phosphorus Magnesium Total Bilirubin AST ALT Alkaline Phosphatase Lactate Dehydrogenase 444 Total Creatine Kinase 364 H CK-MB (CK-2) 15.0 H CK-MB (CK-2) % 4.1 H Troponin I 6.82 H* D Total Protein Albumin Globulin Albumin/Globulin Ratio Triglycerides Cholesterol LDL Cholesterol Direct HDL Cholesterol TSH 3rd Generation Influenza Typ A,B (EIA) Negative for flu a/b 12/20/16 12/20/16 12/20/16 03:15 06:00 06:00 WBC RBC Hgb Hct MCV MCH MCHC RDW Plt Count MPV Gran % Lymph % (Auto) Emery % (Auto) Eos % (Auto) Baso % (Auto) Gran # Lymph # Emery # Eos # Baso # APTT 74.1 H* Sodium 138 Potassium 4.0 Chloride 107 Carbon Dioxide 23 Anion Gap 12 BUN 20 Creatinine 0.7 Est GFR ( Amer) > 60 Est GFR (Non-Af Amer) > 60 Random Glucose 235 H Calcium 8.6 Phosphorus 3.1 Magnesium 2.1 Total Bilirubin 0.4 AST 57 H ALT 38 Alkaline Phosphatase 35 L Lactate Dehydrogenase 499 Total Creatine Kinase 374 H CK-MB (CK-2) 17.1 H CK-MB (CK-2) % 4.6 H Troponin I 4.89 H* D Total Protein 7.2 Albumin 3.5 Globulin 3.7 Albumin/Globulin Ratio 0.9 L Triglycerides 105 Cholesterol 156 LDL Cholesterol Direct 93 HDL Cholesterol 43 TSH 3rd Generation 0.48 Influenza Typ A,B (EIA) 12/20/16 07:00 WBC 7.4 D RBC 4.18 Hgb 11.8 L Hct 36.0 MCV 86.1 MCH 28.2 MCHC 32.8 RDW 13.0 Plt Count 268 MPV 9.9 Gran % 72.7 H Lymph % (Auto) 20.2 L Emery % (Auto) 7.0 H Eos % (Auto) 0.0 L Baso % (Auto) 0.1 Gran # 5.38 Lymph # 1.5 Emery # 0.5 Eos # 0.0 Baso # 0.01 APTT Sodium Potassium Chloride Carbon Dioxide Anion Gap BUN Creatinine Est GFR ( Amer) Est GFR (Non-Af Amer) Random Glucose Calcium Phosphorus Magnesium Total Bilirubin AST ALT Alkaline Phosphatase Lactate Dehydrogenase Total Creatine Kinase CK-MB (CK-2) CK-MB (CK-2) % Troponin I Total Protein Albumin Globulin Albumin/Globulin Ratio Triglycerides Cholesterol LDL Cholesterol Direct HDL Cholesterol TSH 3rd Generation Influenza Typ A,B (EIA) Assessment & Plan - Assessment and Plan (Free Text) Plan: Assessment Systemic Inflammatory Response Syndrome, consider secondary to acute coronary syndrome, R/O sepsis HTN DM obesity with BMI 38 chronic back pain with radiculopathy Plan Started patient on one dose of Vanco and Zosyn and is now on Ceftriaxone pending blood and urine cx, and PCT; reviewed CXR will monitor clinically
[2016-12-21] MEDS: Insulin Reg-MEDIUM-Coverage SC SCH ×4 (00:01→17:15)
[2016-12-21 05:19] LABS: URINE BILIRUBIN NEGATIVE (NEGATIVE); URINE BLOOD NEGATIVE (NEGATIVE); URINE GLUCOSE (UA) >=1000 mg/dL (NEGATIVE); URINE KETONE NEGATIVE (NEGATIVE); URINE LEUKOCYTE ESTERASE NEGATIVE Leu/uL (NEGATIVE); URINE PROTEIN TRACE mg/dL (<30 mg/dL); URINE UROBILINOGEN 0.2 E.U./dL (<1 E.U./dL)
[2016-12-21 05:22] LABS: URINE APPEARANCE CLEAR (CLEAR); URINE COLOR YELLOW (YELLOW)
[2016-12-21 05:33] LABS: URINE RBC 0 - 2 /hpf (0-2); URINE WBC 0 - 2 /hpf (0-6)
[2016-12-21 05:34] LABS: URINE BACTERIA RARE (NEG); URINE EPITHELIAL CELLS 0 - 2 /hpf (0-5)
[2016-12-21 05:50] VITALS: O2SAT 97
[2016-12-21 07:01] LABS: ADD MANUAL DIFF? NO
[2016-12-21 07:22] LABS: GRAN # 3.21 (1.4-6.5); GRAN % 60.6 % (50.0-68.0); HEMATOCRIT 36.2 % (36.0-48.0); LYMPH # 1.5 (1.2-3.4); LYMPH % 28.2 % (22.0-35.0); MEAN CELL VOLUME 86.6 fL (80.0-105.0); MEAN CORPUSCULAR HGB CONC 32.3 g/dl (31.0-37.0); MEAN PLATELET VOLUME 9.9 fl (7.0-11.0); MONO # 0.6 (0.1-0.6); MONO % 11.2 % (1.0-6.0); PLATELET COUNT 272 10^3/uL (120.0-450.0); RED CELL DISTRIBUTION WIDTH 12.9 % (11.5-14.5); WHITE BLOOD COUNT 5.3 10^3/ul (4.5-11.0)
[2016-12-21 07:28] LABS: ALB/GLOB RATIO 0.9 (1.1-1.8); ALKALINE PHOSPHATASE 33 U/L (38-133); ALT/SGPT 37 U/L (7-56); AST/SGOT 51 U/L (15-39); BILIRUBIN,TOTAL 0.4 mg/dL (0.2-1.3); BLOOD UREA NITROGEN 25 mg/dL (7-21); CALCIUM 8.6 mg/dL (8.4-10.5); CARBON DIOXIDE 22 mmol/L (21-33); CHLORIDE 107 mmol/L (98-107); GFR AFRICAN-AMERICAN > 60; GLUCOSE,RANDOM 246 mg/dL (70-110); MAGNESIUM 2.3 mg/dL (1.7-2.2); PHOSPHOROUS 2.7 mg/dL (2.5-4.5); SODIUM 138 mmol/L (132-148); TOTAL PROTEIN 7.1 g/dL (5.8-8.3)
[2016-12-21] MEDS ORDERED: Enoxaparin 40 mg Syringe SC SCH (10:00)
[2016-12-21] MEDS: Insulin Detemir 100 units/ml Vial (Levemir) SC SCH ×2 (10:01→17:14)
--- NOTE | 2016-12-21 10:07 | PQF SEPSIS ---
This form is a permanent part of the medical record Dr. Plummer, Patient admitted with SIRS, r/o sepsis, which you noted in your consult. Please specify, after completing work-up, if sepsis was present on admission or ruled out. Clarification of your documentation is requested to better reflect the severity of illness and intensity of treatment of your patient. Indicators present [x] Temp < 96.8 or > 100.4 [x] WBC count > 12,000/mm3 or <000/mm3 or 10% immature neutrophils [x] Heart Rate > 90 [] Respiratory Rate > 20 [x] Fever or hypothermia [x] Chills [] Positive blood cultures [] Hypotension [] Metabolic acidosis (Elevated lactate level, anion gap or reduced blood pH) [] Acute confusion /Altered Mental Status [] Shock [] Other: [] Location in the medical record that reflects the above clinical findings: [] Treatment Provided: [] PHYSICIAN'S RESPONSE Based on your medical judgment of the clinical indicators outlined above, are you treating this patient for a known or suspected: [] Sepsis / Septicemia Please specify organism if known [] [x] SIRS (Systemic Inflammatory Response Syndrome) [] Severe Sepsis (Sepsis with Associated Organ Dysfunction) [] Fever of Unknown Origin [] Other, please indicate: [] [] If Unable to Determine, please check the box, sign and date. Present On Admission (POA) Indicator: [] Present at the time of admission [] Not present at the time of admission [x] Clinically Undetermined In responding to this query, please exercise your independent professional judgment. The fact that a question is asked does not imply that any particular answer is desired or expected. Thank you for your clarification on this documentation. 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
--- NOTE | 2016-12-21 10:20 | PN ---
DATE: 12/21/2016 REASON FOR CONSULTATION AND FOLLOWUP: Cardiac evaluation, [id number] myocardial infarction, acut e coronary syndrome, status post PTCA, small vessel disease. BRIEF CLINICAL HISTORY: A 66-year-old female with past medical history significant for diabetes, hyp ertension, hyperlipidemia, nonobstructive coronary artery disease in the past, cardiac catheterizatio n 10 years ago, admitted after a pain injection for back pain at Dr. Vikram Coelho's office with a fe swetha of 103.2, dynamic ST-T changes and WBC 12.9. After being stabilized, the patient underwent yeste rday cardiac catheterization that revealed nonobstructive coronary artery disease, small vessel disea se, major epicardial coronaries, LAD, circumflex and RCA essentially free of significant disease. Di srinivase noted in the distal RPDA, is totally occluded distal circ disease. Medical treatment recommend ed. The patient denies any chest pain, shortness of breath, any palpitation. PHYSICAL EXAMINATION: VITAL SIGNS: Temperature afebrile, heart rate 50, blood pressure 119/48. HEENT: PERRLA. Extraocular muscles intact. NECK: Supple. No carotid bruit or thyromegaly. CHEST: Clear to auscultation. HEART: S1, S2 regular. ABDOMEN: Soft. EXTREMITIES: Clubbing and cyanosis negative. LABORATORY DATA: Blood workup as follows: WBC 5.3, hemoglobin 11.7, hematocrit 36.2, platelet count 272. Chemistry shows sodium 130, potassium 4, chloride 107, carbon dioxide 32, anion gap of 13, BUN 25, creatinine 0.6. IMPRESSION: Acute coronary syndrome, non-ST myocardial infarction secondary to small vessel disease. The distal right posterior descending artery totally occluded and distal circ disease, small vessel disease. Major epicardial, essentially free of significant disease, chronic back pain, status post injection in the back, rule out sepsis, 103 fever on admission, now improved. Elevated WBC count on admission, now the count went to 5.3. Diabetes, hypertension, hyperlipidemia, obesity. RECOMMENDATION: Aggressive medical treatment, emphasis on weight reduction. Continue statin, aspiri n, beta yvon. We will change atorvastatin to 10 mg and the patient was at home Plavix, reason unk nown. We will resume back Plavix. The patient came in on Plavix, reason unknown. We will change at orvastatin to ____. We will discontinue telemetry. Aggressive medical treatment. We will follow wi th you. Thank you, Dr. Coelho, for providing us the opportunity in taking care of the patient. Continue beta yvon, aspirin, lisinopril. DVT prophylaxis. Decrease atorvastatin to ____ mg, 80 mg was given f or acute coronary syndrome, now will decrease to ____ as the patient's LDL is 90 and resume back Plav ix. The patient was on Plavix at home. Possible discharge, okay to be from cardiac point of view. We will get echo to assess LV function. Angel Palacio MD cc: [id number] TT: 12/21/2016 10:12:44 Confirmation # [id number] Dictation # [id number] tn 12/21/2016 09:19:18
--- NOTE | 2016-12-21 12:33 | CARD ---
APPROVED REPORT EKG Measurement Heart [id number] MD [id number] <Conclusion> Normal sinus rhythm with 1st degree AVB Arya-septal infarct, age undetermined
--- NOTE | 2016-12-21 16:23 | CP.PCM.PN ---
Subjective - Date & Time of Evaluation Date of Evaluation: 12/21/16 Time of Evaluation: 12:10 - Subjective Subjective: Patient is comfortable, no fevers overnight, no nausea, no diarrhea, no cough, currently no chest pain, no dysuria, no SOB. Objective - Vital Signs/Intake and Output Vital Signs (last 24 hours): Temp Pulse Resp BP Pulse Ox 98.2 F 55 L 18 139/57 L 97 12/21/16 13:18 12/21/16 13:18 12/21/16 13:18 12/21/16 13:18 12/21/16 05:49 Intake and Output: 12/21/16 12/21/16 06:59 18:59 Intake Total 0 Output Total 600 Balance -600 - Medications Medications: Current Medications Aspirin (Ecotrin) 81 mg PO DAILY [facility] Last Admin: 12/21/16 10:00 Dose: 81 mg Atenolol (Tenormin) 25 mg PO DAILY [facility] Last Admin: 12/21/16 10:03 Dose: 25 mg Atorvastatin Calcium (Lipitor) 20 mg PO DIN [facility] Clopidogrel Bisulfate (Plavix) 75 mg PO DAILY [facility] Last Admin: 12/21/16 10:00 Dose: 75 mg Enoxaparin Sodium (Lovenox) 40 mg SC DAILY [facility] PRN Reason: Protocol Last Admin: 12/21/16 10:01 Dose: 40 mg Furosemide (Lasix) 40 mg PO DAILY [facility] Last Admin: 12/21/16 10:04 Dose: 40 mg Insulin Detemir (Levemir) 15 unit SC BID [facility] Last Admin: 12/21/16 10:01 Dose: 15 unit Insulin Human Regular (Humulin R Med) 0 units SC ACHS [facility] PRN Reason: Protocol Last Admin: 12/21/16 12:58 Dose: 5 units Lisinopril (Zestril) 5 mg PO DAILY [facility] Last Admin: 12/21/16 10:04 Dose: 5 mg - Labs Labs: 12/21/16 06:30 12/21/16 06:30 PT 10.7 Seconds (9.9-11.8) 12/19/16 12:45 INR 0.99 (0.93-1.08) 12/19/16 12:45 APTT 74.1 Seconds (23.7-30.8) H* 12/20/16 03:15 - Constitutional Appears: Non-toxic, No Acute Distress - Head Exam Head Exam: NORMAL INSPECTION - Neck Exam Neck Exam: absent: Lymphadenopathy, Meningismus - Respiratory Exam Respiratory Exam: Decreased Breath Sounds - Cardiovascular Exam Cardiovascular Exam: +S1, +S2 - GI/Abdominal Exam GI & Abdominal Exam: Soft. absent: Tenderness Assessment and Plan - Assessment and Plan (Free Text) Plan: Assessment Systemic Inflammatory Response Syndrome, consider secondary to acute coronary syndrome, with no evidence of sepsis identified HTN DM obesity with BMI 38 chronic back pain with radiculopathy Plan blood cx are negative; urinalysis does not show pyuria; CXR does not show infiltrates; PCT is elevated but it may be elevated in patients with acute inflammatory conditions Will monitor off antibiotics since she is at risk for infection
[2016-12-21 16:30] VITALS: BP 132/62; PULSE 56; RESP 20; TEMP 98
--- NOTE | 2016-12-21 18:16 | CARD ---
APPROVED REPORT EXAM: Two-dimensional and M-mode echocardiogram with Doppler and color Doppler. INDICATION Chest Pain LVFX 2D DIMENSIONS Left Atrium (2D)4.7 (1.6-4.0cm)IVSd1.2 (0.7-1.1cm) LVDd4.3 (3.9-5.9cm)LVOT Diameter1.9 (1.8-2.4cm) PWd1.4 (0.7-1.1cm)LVDs3.1 (2.5-4.0cm) FS (%) 28.3 %LVEF (%)55.0 (>50%) M-Mode DIMENSIONS Aortic Root2.50 (2.2-3.7cm)Aortic Cusp Exc.1.30 (1.5-2.0cm) Aortic Valve AoV Peak Nbtomotx789.0cm/sAoV VTI72.9cmAO Peak GR.33mmHg LVOT Peak Tvrjlvmo197.0cm/sLVOT VTI31.90cmAO Mean GR.18mmHg MARY (VMAX)1.27sr8SNJ (VTI)1.24cm2 Mitral Valve MV E Rgtgkpur89.1cm/sMV A Izlpunvv53.3cm/sE/A ratio0.9 TDI Lateral E' Peak V6.24cm/sMedial E' Peak V4.78cm/sE/Lateral E'13.2 E/Medial E'17.2 Pulmonary Valve PV Peak Selroeoy17.2cm/sPV Peak Grad.3mmHg Tricuspid Valve TR Peak Whcybvsm480do/sRAP LMHUIWHY06qnQbYB Peak Gr.49mmHg [id number] LEFT VENTRICLE The left ventricle is normal size. There is mild concentric left ventricular hypertrophy. The left ventricular function is normal.EF-55% There is mild hypokinesis in the apical anterior wall. Transmitral Doppler flow pattern is Grade III-reversible restrictive diastolic dysfunction. No left ventricle thrombus noted on this study. There is no ventricular septal defect visualized. There is no left ventricular aneurysm. There is no mass noted in the left ventricle. RIGHT VENTRICLE The right ventricle is mildly dilated. There is normal right ventricular wall thickness. Systolic function of Rv is mildly reduced. ATRIA The left atrium is moderately dilated. The right atrium size is normal. The interatrial septum is intact with no evidence for an atrial septal defect. AORTIC VALVE The aortic valve is calcified and displays decreased opening. The aortic valve is moderately sclerotic. There is trace aortic regurgitation. There is mild to moderate valvular aortic stenosis. There is no aortic valvular vegetation. MITRAL VALVE The mitral valve is thickened but opens well. Mitral regurgitation is moderate. There is no mitral valve stenosis. There is no evidence of mitral valve prolapse. TRICUSPID VALVE The tricuspid valve leaflets are thickened , but open well. There is mild to moderate tricuspid regurgitation.RVSP-59 mmof hg. There is mild to moderate pulmonary hypertension. There is no tricuspid valve stenosis. There is no tricuspid valve prolapse or vegetation. PULMONIC VALVE The pulmonic valve is mildly thickened. There is mild pulmonic valvular regurgitation. There is no pulmonic valvular stenosis. GREAT VESSELS The aortic root is normal in size. The ascending aorta is normal in size. The pulmonary artery is normal. The IVC is normal in size and collapses >50% with inspiration. PERICARDIAL EFFUSION There is no pleural effusion. There is no pericardial effusion. <Conclusion> The left ventricle is normal size. There is mild concentric left ventricular hypertrophy. The left ventricular function is normal.EF-55% The right ventricle is mildly dilated. Systolic function of Rv is mildly reduced. There is trace aortic regurgitation. There is mild to moderate valvular aortic stenosis. Mitral regurgitation is moderate. There is mild to moderate tricuspid regurgitation.RVSP-59 mmof hg. There is mild to moderate pulmonary hypertension. There is mild pulmonic valvular regurgitation.
--- NOTE | 2016-12-22 00:38 | PN ---
DATE: 12/20/2016 The patient underwent cardiac catheterization stable, has no complaint. No chest pain, no short of b reath, seems to be doing well. PHYSICAL EXAMINATION: VITAL SIGNS: Temperature 98.3, heart rate 60, blood pressure 119/54, respirations 20. HEAD AND NECK: Normal. No JVD, no thyromegaly. CHEST: Clear, good air entry. CARDIAC: First and second sounds are normal. ABDOMEN: Obese, nontender. EXTREMITIES: No edema. NEUROLOGIC: Normal. LABORATORY DATA: White count 7.4, hemoglobin 11.8, hematocrit 36, platelets 268. Chemistry on 12/20, she has sodium 138, potassium 4, chloride 107, bicarbonate 38, BUN 20, creatinine 0.7. Blood sugar 235 and liver function test, AST is 57, ALT 38 and alkaline phosphatase , which is low. T he patient also had troponin positive 4.89. IMPRESSION AND PLAN: 1. Acute non-ST elevation myocardial infarction, status post cardiac cath, nonobstructive coronary a rtery disease. Continue medical management, aspirin, Plavix, Lipitor, beta blockers and follow up [facility] Dr. Palacio as outpatient, followup with me in 1 week. 2. Hypertension, diabetes, hypercholesterolemia, morbid obesity, possible obstructive sleep apnea. The patient advised on weight loss. Continue current treatment. Continue Lyrica, Naprosyn, aspirin, Januvia, Glucovance, Lasix, Imdur 30 mg p.o. daily and Norvasc 10 mg p.o. daily, mg p.o. jose y, Tenormin 25 mg p.o. daily, Plavix 75 mg p.o. daily. PLAN: Continue all medicines and follow up clinically. The patient will be discharged in the [facility]. Vikram Coelho MD cc: [phone] TT: 12/22/2016 00:38:29 Confirmation # [id number] Dictation # [id number] mn
--- NOTE | 2016-12-22 01:35 | DS ---
SUBJECTIVE: The patient is stable, has no new complaints. Status post cardiac cath, nonobstructive coronary artery, patient tolerated the procedure. No complications, no chest pain. Will be discharg ed home. PHYSICAL EXAMINATION: VITAL SIGNS: Stable. Temperature is 98, heart rate 56, blood pressure 132/62, respirations 20. HEAD AND NECK: Normal. No JVD, no thyromegaly. CHEST: Clear, good entry. CARDIAC: First and second sounds are normal. ABDOMEN: Soft, obese, nontender. EXTREMITIES: No edema. NEUROLOGIC: Normal. LABORATORY DATA: White count 5.3, hemoglobin 11.7, hematocrit 36.2, platelets 272. Chemistry: Sodi um 138, potassium 4, chloride 107, bicarbonate 22, BUN 25, creatinine 0.6, blood sugar 246. Magnesiu m 2.3, AST 51, ALT is normal. Alkaline phosphatase is normal. DISCHARGE DIAGNOSES: 1. Acute non-ST elevation myocardial infarction. 2. Nonobstructive coronary artery disease. 3. Hypertension, diabetes, hypercholesterolemia. 4. Morbid obesity possible. 5. Possible obstructive sleep apnea. PLAN: The patient advised to continue all her meds including Imdur. DISCHARGE MEDICATIONS: Lyrica 50 b.i.d., aspirin 81 mg once a day, Januvia 100 mg p.o. daily, metfor min 500 b.i.d., Lasix 20 p.o. daily, 30 mg p.o. daily, insulin 75/25 40 in the morning, 30 at n ight. Norvasc 10 mg p.o. daily, Aldactone 50 p.o. daily, Tenormin 25 mg daily, Plavix 75 mg p.o. richie ly. Continue current treatment. Follow up clinically. Vikram Coelho MD cc: [phone] TT: 12/22/2016 01:34:42 lele
== END 2016-12-21 19:06 | disposition home or self-care (01) | DRG 281 ==
LOC: ED 12:26 → ERH 15:52 → 2RNO 18:08
PROVIDERS: ADMIT Internal Medicine; ATTEND Internal Medicine
PROC: 4A023N7 Measurement of Cardiac Sampling and Pressure, Left Heart, Percutaneous Approach (ICD-10-PCS; principal; 2016-12-20)
PROC: B2051ZZ Plain Radiography of Left Heart using Low Osmolar Contrast (ICD-10-PCS; 2016-12-20)
PROC: B2011ZZ Plain Radiography of Multiple Coronary Arteries using Low Osmolar Contrast (ICD-10-PCS; 2016-12-20)
DX: I21.4 Non-ST elevation (NSTEMI) myocardial infarction (principal); R65.10 Systemic inflammatory response syndrome (SIRS) of non-infectious origin without acute organ dysfunction; I11.9 Hypertensive heart disease without heart failure; E11.9 Type 2 diabetes mellitus without complications; E66.01 Morbid (severe) obesity due to excess calories; I25.110 Atherosclerotic heart disease of native coronary artery with unstable angina pectoris; I51.7 Cardiomegaly; M54.10 Radiculopathy, site unspecified; E78.00 Pure hypercholesterolemia, unspecified; G47.33 Obstructive sleep apnea (adult) (pediatric); Z79.4 Long term (current) use of insulin; Z79.82 Long term (current) use of aspirin; Z68.38 Body mass index [BMI] 38.0-38.9, adult

== ENCOUNTER 2017-08-24 10:19 | Day surgery (SDC) | payer MEDICARE, MEDICAID ==
[2017-08-16 07:59] VITALS: BMI 38.7
[2017-08-24] MEDS ORDERED: Etomidate 40 MG/20 ML ML IV ONE (12:53)
[2017-08-24] MEDS ORDERED: Lidocaine 1% Inj (20ml) ONE (12:53)
[2017-08-24] MEDS ORDERED: Propofol 10 mg/ml Inj (20 ML) ONE ×2 (12:53→13:12)
[2017-08-24] MEDS ORDERED: Sodium Chloride 0.9% 1,000 ML IV SCH (13:45)
[2017-08-24 13:59] VITALS: PULSE 66
[2017-08-24 14:16] VITALS: BP 161/68; RESP 16; TEMP 98.3; O2SAT 96
== END 2017-08-24 15:45 | disposition home or self-care (01) ==
LOC: ENDO 10:19
PROVIDERS: ATTEND Internal Medicine
DX: K29.50 Unspecified chronic gastritis without bleeding (principal); D12.0 Benign neoplasm of cecum; D12.4 Benign neoplasm of descending colon; D12.3 Benign neoplasm of transverse colon; K64.8 Other hemorrhoids; I10 Essential (primary) hypertension; E11.9 Type 2 diabetes mellitus without complications; E78.5 Hyperlipidemia, unspecified; R63.4 Abnormal weight loss
CPT/HCPCS: 43239; 45378; 82948; 88305; 88342; J2704; J7040 ×2

== ENCOUNTER 2017-12-29 21:16 | Emergency (ER) | payer MEDICARE, MEDICAID ==
[2017-12-29 21:28] VITALS: BMI 35.2
[2017-12-29 21:32] VITALS: TEMP 98.5
[2017-12-29] MEDS ORDERED: Sodium Chloride 0.9% 500 ML IV STA (22:31)
[2017-12-29] MEDS ORDERED: Morphine 2 mg/ml ISec IVP STA (22:32)
--- NOTE | 2017-12-29 22:37 | ED PDOC ---
Arrival/HPI - General Chief Complaint: Back Pain Time Seen by Provider: 12/29/17 22:14 Historian: Patient, Family - History of Present Illness Narrative History of Present Illness (Text): 12/29/17 22:33 This 67 yo female with pmh dm, hyperlipidemia, shingles, presents to this ED c/ o generalized bodyaches x 1 week. Patient was recently Dx. with shingle of right forehead. Patient denies sob, cp, abdominal pain or urinary symptoms. Time/Duration: Other (see hpi) Context: Home Past Medical History - Provider Review Nursing Documentation Reviewed: Yes - Cardiac Hx Hypertension: Yes - Pulmonary Hx Respiratory Disorders: No - Neurological Hx Paralysis: No - HEENT Hx HEENT Disorder: No - Renal Hx Renal Disorder: No - Endocrine/Metabolic Hx Endocrine Disorders: Yes Hx Diabetes Mellitus Type 2: Yes - Hematological/Oncological Hx Blood Transfusions: No Hx Blood Transfusion Reaction: No - Integumentary Hx Dermatological Disorder: No - Musculoskeletal/Rheumatological Hx Musculoskeletal Disorders: Yes - Gastrointestinal Hx Gastrointestinal Disorders: No - Genitourinary/Gynecological Hx Genitourinary Disorders: No - Psychiatric Hx Emotional Abuse: No Hx Physical Abuse: No Hx Substance Use: No - Surgical History Hx Section: Yes Hx Hysterectomy: Yes - Anesthesia Hx Anesthesia: No Hx Anesthesia Reactions: No Hx Malignant Hyperthermia: No - Suicidal Assessment Feels Threatened In Home Enviroment: No Family/Social History - Physician Review Nursing Documentation Reviewed: Yes Family/Social History: Other (noncontributory) Smoking Status: Unknown If Ever Smoked Hx Alcohol Use: No Hx Substance Use: No Hx Substance Use Treatment: No Allergies/Home Meds Allergies/Adverse Reactions: Allergies No Known Allergies Allergy (Verified 12/29/17 21:28) Home Medications: Home Meds Medication Instructions Recorded Confirmed Aspirin [Aspirin Chewable] 81 mg PO DAILY 12/19/16 12/29/17 Atenolol [Tenormin] 25 mg PO DAILY 12/19/16 12/29/17 Insulin Lispro Mix 75/25 [HumaLOG 50 units SC BID 12/19/16 12/29/17 Mix 75/25] Isosorbide Mononitrate ER [Imdur 30 mg PO DAILY 12/19/16 12/29/17 ER] MetFORMIN [glucoPHAGE] 500 mg PO BID 12/19/16 12/29/17 Albuterol HFA [Ventolin HFA 90 0.09 mg IH PRN PRN 08/24/17 12/29/17 mcg/actuation (8 g)] Calcium Carbonate [Calcium] 600 mg PO BID 08/24/17 12/29/17 Donepezil HCl [Aricept] 5 mg PO DAILY 08/24/17 12/29/17 Fenofibrate Nanocrystallized 145 mg PO HS 08/24/17 12/29/17 [Fenofibrate] Ferrous Sulfate [Feosol] 325 mg PO BID 08/24/17 12/29/17 Hydrochlorothiazide [Microzide] 12.5 mg PO DAILY 08/24/17 12/29/17 Hydroxychloroquine Sulfate 200 mg PO BID 08/24/17 12/29/17 [Plaquenil] Ibandronate Sodium [Boniva] 150 mg PO DAILY 08/24/17 12/29/17 Multivitamin/Iron/Folic Acid 1 each PO DAILY 08/24/17 12/29/17 [Certavite-Antioxidant Tablet] Universal-3 Acid Ethyl Esters [Triklo] 1 gm PO BID 08/24/17 12/29/17 SITagliptin [Januvia] 100 mg PO DAILY 08/24/17 12/29/17 Acyclovir 5% [Zovirax 5% Oint] 1 appl TD BID 12/29/17 12/29/17 Acyclovir [Zovirax] 800 mg PO QID 12/29/17 12/29/17 Butalb/Acetaminophen/Caffeine 1 tab PO Q8H PRN 12/29/17 12/29/17 [Zebutal 50-325-40 mg Capsule] Celecoxib [celeBREX] 200 mg PO DAILY 12/29/17 12/29/17 Esomeprazole Magnesium [Nexium] 40 mg PO DAILY 12/29/17 12/29/17 Insulin Aspart/Insulin Aspar 0 units SUBCUT ACHS 12/29/17 12/29/17 [Novolog Mix 70/30 (70/30 units/ml)] Insulin Glargine,Hum.rec.anlog 50 units SUBCUT DAILY 12/29/17 12/29/17 [Sherin Avelar] Lubiprostone [Amitiza] 24 mcg PO BID 12/29/17 12/29/17 Review of Systems - Review of Systems Constitutional: Normal. absent: Fatigue, Weight Change, Fevers Eyes: Normal ENT: Normal Respiratory: Normal Cardiovascular: Normal Gastrointestinal: Normal Genitourinary Female: Normal Musculoskeletal: Myalgias Skin: Other (forehead shingles.) Neurological: Normal Endocrine: Normal Hemo/Lymphatic: Normal Psychiatric: Normal Physical Exam Vital Signs Temp Pulse Resp BP Pulse Ox 12/29/17 21:30 98.5 F 75 16 144/69 98 Temperature: Afebrile Blood Pressure: Normal Pulse: Regular Respiratory Rate: Normal Appearance: Positive for: Well-Appearing, Non-Toxic, Comfortable Pain Distress: None Mental Status: Positive for: Alert and Oriented X 3 - Systems Exam Head: Present: Atraumatic, Normocephalic, Other ((+) right forehead shingles. No Georges's sign) Pupils: Present: PERRL, Other (No herpetic/dendritic lesion visualized on anterior chanber of right eye.) Extroacular Muscles: Present: EOMI Conjunctiva: Present: Normal Ears: Present: Normal, NORMAL TM, Normal Canal. No: Erythema, TM Bulging, Fluid , TM Perf Mouth: Present: Moist Mucous Membranes Pharnyx: Present: Normal. No: ERYTHEMA, EXUDATE, TONSILS ENLARGED Nose (External): Present: Atraumatic Nose (Internal): Present: Normal Inspection, Other (No Georges's sign) Neck: Present: Normal Range of Motion Respiratory/Chest: Present: Clear to Auscultation, Good Air Exchange. No: Respiratory Distress, Accessory Muscle Use Cardiovascular: Present: Regular Rate and Rhythm, Normal S1, S2. No: Murmurs Abdomen: No: Tenderness, Distention, Peritoneal Signs Back: Present: Normal Inspection Upper Extremity: Present: Normal Inspection. No: Cyanosis, Edema Lower Extremity: Present: Normal Inspection. No: Edema Neurological: Present: GCS=15, CN II-XII Intact, Speech Normal Skin: Present: Warm, Dry, Normal Color. No: Rashes Psychiatric: Present: Alert, Oriented x 3, Normal Insight, Normal Concentration Medical Decision Making ED Course and Treatment: 12/30/17 00:05 I spoke with sage Gonsales regarding generalized bodyache. Dr. Coelho stated he is aware of patient complains. He is recommending Tramadol for pain, and to discharge patient home, so she can follow up his office on Monday. I also had spoke with Dr. Montoya . He said Dr. Pacheco evaluated patient a couple days ago. She was prescribe Acyclovir PO and topical for right forehead shingles. Patient was referred to see Quality Analyst/Technical Writer for eye evaluation. 12/30/17 01:58 Re-evaluation. Patient feels better. Discussed results and plan with patient who expresses understanding. All questions answered and there is agreement with the plan to discharge home with instructions. Patient stable for discharge. Return if symptoms persist or worsen Re-evaluation Time: 01:58 Reassessment Condition: Re-examined, Improved - Lab Interpretations Lab Results: 12/29/17 22:45 12/29/17 22:45 Lab Results 12/30/17 00:15: Urine Color Yellow, Urine Appearance Sl cloudy, Urine pH 7.5, Ur Specific [place] 1.020, Urine Protein 30 H, Urine Glucose (UA) Negative, Urine Ketones Negative, Urine Blood Negative, Urine Nitrate Negative, Urine Bilirubin Negative, Urine Urobilinogen 0.2, Ur Leukocyte Esterase Small H, Urine RBC 0 - 2, Urine WBC 2 - 5, Ur Epithelial Cells 0 - 2, Urine Bacteria Few 12/29/17 22:45: Sodium 142, Potassium 4.5, Chloride 104, Carbon Dioxide 26, Anion Gap 17, BUN 14, Creatinine 0.8, Est GFR ( Amer) > 60, Est GFR (Non- Af Amer) > 60, Random Glucose 171 H, Calcium 9.5, Total Bilirubin 0.4, AST 26, ALT 29, Alkaline Phosphatase 39, Total Protein 8.3, Albumin 4.4, Globulin 3.9, Albumin/Globulin Ratio 1.1 12/29/17 22:45: WBC 5.5, RBC 4.49, Hgb 12.7, Hct 38.8, MCV 86.4, MCH 28.3, MCHC 32.7, RDW 12.7, Plt Count 240, MPV 9.2, Gran % 43.3 L, Lymph % (Auto) 41.6 H, [place] % (Auto) 13.6 H, Eos % (Auto) 1.1 L, Baso % (Auto) 0.4, Gran # 2.37, Lymph # (Auto) 2.3, [place] # (Auto) 0.7 H, Eos # (Auto) 0.1, Baso # (Auto) 0.02 - Medication Orders Current Medication Orders: Discontinued Medications Hydromorphone HCl (Dilaudid) 0.5 mg IVP STAT STA Stop: 12/29/17 23:45 Last Admin: 12/30/17 00:19 Dose: 0.5 mg MAR Pain Assessment Document 12/30/17 00:19 AD (Rec: 12/30/17 00:20 AD [id number]) Pain Reassessment Is this a pain reassessment? No Presence of Pain Presence of Pain Yes IVP Administration Document 12/30/17 00:19 AD (Rec: 12/30/17 00:20 AD [id number]) Charges for Administration # of IVP Administrations 1 Sodium Chloride (Sodium Chloride 0.9%) 500 mls @ 999 mls/hr IV .Q31M STA Stop: 12/29/17 23:01 Last Admin: 12/29/17 22:53 Dose: 999 mls/hr eMAR Start Stop Document 12/29/17 22:53 AD (Rec: 12/29/17 22:53 AD [id number]) Intravenous Solution Start Date 12/29/17 Start Time 22:53 Morphine Sulfate (Morphine) 2 mg IVP STAT STA Stop: 12/29/17 22:33 Last Admin: 12/29/17 22:53 Dose: 2 mg MAR Pain Assessment Document 12/29/17 22:53 AD (Rec: 12/29/17 22:53 AD [id number]) Pain Reassessment Is this a pain reassessment? No Presence of Pain Presence of Pain Yes Pain Scale Used Pain Scale Used Numeric Location Pain Location Body Site Generalized Description Intensity of Pain at present 8 IVP Administration Document 12/29/17 22:53 AD (Rec: 12/29/17 22:53 AD [id number]) Charges for Administration # of IVP Administrations 1 Ondansetron HCl (Zofran Inj) 4 mg IVP STAT STA Stop: 12/29/17 22:33 Last Admin: 12/29/17 22:53 Dose: 4 mg IVP Administration Document 12/29/17 22:53 AD (Rec: 12/29/17 22:53 AD [id number]) Charges for Administration # of IVP Administrations 1 Disposition/Present on Arrival - Present on Arrival Any Indicators Present on Arrival: No History of DVT/PE: No History of Uncontrolled Diabetes: Yes Urinary Catheter: No History of Decub. Ulcer: No History Surgical Site Infection Following: None - Disposition Have Diagnosis and Disposition been Completed?: Yes Diagnosis: Generalized muscle ache, History of shingles Disposition: HOME/ ROUTINE Disposition Time: 01:59 Patient Plan: Discharge Condition: GOOD Discharge Instructions (ExitCare): Muscle and Bone Pain (DC) Additional Instructions: Call Dr. Coelho office for follow up visit on Monday. Take medication as instructed with food. Continue with home medication. Return to emergency if symptoms worsen. Do not drive or operate machinery for at least 12 hours if you take Tramadol Prescriptions: Cephalexin [cephalexin] 500 mg PO TID #21 cap traMADol [Ultram] 50 mg PO Q4H PRN #15 tab PRN Reason: Pain, Severe (8-10) Referrals: Vikram Coelho MD [Primary Care Provider] - Follow up with primary Forms: [employer] ([place])
[2017-12-29 22:58] LABS: BASO # 0.02 K/mm3 (0.0-2.0); BASO % 0.4 % (0.0-3.0); EOS # 0.1 (0.0-0.7); EOS % 1.1 % (1.5-5.0); GRAN # 2.37 (1.4-6.5); GRAN % 43.3 % (50.0-68.0); HEMOGLOBIN 12.7 g/dL (12.0-16.0); LYMPH # 2.3 (1.2-3.4); LYMPH % 41.6 % (22.0-35.0); MEAN CELL VOLUME 86.4 fl (80.0-105.0); MEAN CORPUSCULAR HEMOGLOBIN 28.3 pg (25.0-35.0); MEAN CORPUSCULAR HGB CONC 32.7 g/dl (31.0-37.0); MEAN PLATELET VOLUME 9.2 fl (7.0-11.0); MONO # 0.7 (0.1-0.6); MONO % 13.6 % (1.0-6.0); RBC 4.49 10^6/uL (3.5-6.1); RED CELL DISTRIBUTION WIDTH 12.7 % (11.5-14.5); WHITE BLOOD COUNT 5.5 10^3/ul (4.5-11.0)
[2017-12-29 23:23] LABS: ALB/GLOB RATIO 1.1 (1.1-1.8); ALBUMIN 4.4 g/dL (3.0-4.8); ALT/SGPT 29 U/L (7-56); AST/SGOT 26 U/L (14-36); BLOOD UREA NITROGEN 14 mg/dL (7-21); CALCIUM 9.5 mg/dL (8.4-10.5); GFR AFRICAN-AMERICAN > 60; GFR NON-AFRICAN AMERICAN > 60
[2017-12-29] MEDS ORDERED: HYDROmorphone 0.5 mg/0.5 ml ISec IVP STA (23:44)
[2017-12-30 00:47] LABS: PH,URINE 7.5 (4.7-8.0); URINE BILIRUBIN NEGATIVE (NEGATIVE); URINE BLOOD NEGATIVE (NEGATIVE); URINE GLUCOSE (UA) NEGATIVE (NEGATIVE); URINE LEUKOCYTE ESTERASE SMALL Leu/uL (NEGATIVE); URINE PROTEIN 30 mg/dL (<30 mg/dL); URINE UROBILINOGEN 0.2 E.U./dL (<1 E.U./dL)
[2017-12-30 00:51] LABS: URINE COLOR YELLOW (YELLOW)
[2017-12-30 00:52] LABS: URINE APPEARANCE SL CLOUDY (CLEAR)
[2017-12-30 01:17] LABS: URINE BACTERIA FEW (NEG); URINE EPITHELIAL CELLS 0 - 2 /hpf (0-5); URINE RBC 0 - 2 /hpf (0-2)
[2017-12-30 02:53] VITALS: RESP 18
[2017-12-30 03:03] VITALS: BP 154/89; PULSE 78; O2SAT 98
== END 2017-12-30 02:15 | disposition home or self-care (01) ==
LOC: ED 21:16
DX: M79.1 Myalgia (principal); B02.9 Zoster without complications; I10 Essential (primary) hypertension; E11.9 Type 2 diabetes mellitus without complications; E78.5 Hyperlipidemia, unspecified
CPT/HCPCS: 80053; 81001; 82550; 85025; 96374; 96375; 99283; J1170; J2270; J2405; J7040

== ENCOUNTER 2018-02-19 10:27 | Day surgery (SDC) | payer MEDICARE, MEDICAID ==
[2018-02-19 11:03] VITALS: BMI 38.7
[2018-02-19 11:03] LABS: BASO # 0.02 K/mm3 (0.0-2.0); BASO % 0.4 % (0.0-3.0); EOS # 0.1 (0.0-0.7); EOS % 1.6 % (1.5-5.0); GRAN % 39.2 % (50.0-68.0); LYMPH # 2.6 (1.2-3.4); MEAN CELL VOLUME 86.2 fl (80.0-105.0); MEAN CORPUSCULAR HGB CONC 33.6 g/dl (31.0-37.0); MEAN PLATELET VOLUME 9.4 fl (7.0-11.0); MONO # 0.5 (0.1-0.6); MONO % 8.8 % (1.0-6.0); RBC 4.49 10^6/uL (3.5-6.1); RED CELL DISTRIBUTION WIDTH 12.6 % (11.5-14.5); WHITE BLOOD COUNT 5.1 10^3/ul (4.5-11.0)
[2018-02-19 11:06] LABS: BLOOD UREA NITROGEN 13 mg/dL (7-21); CALCIUM 9.7 mg/dL (8.4-10.5); GFR AFRICAN-AMERICAN > 60; GFR NON-AFRICAN AMERICAN > 60
[2018-02-19 11:13] LABS: INR 0.98 (0.93-1.08); PARTIAL THROMBOPLASTIN TIME 31.4 Seconds (25.1-36.5); PROTHROMBIN TIME 11.3 SECONDS (9.4-12.5)
[2018-02-19] MEDS ORDERED: Lidocaine 1% Inj (20ml) ONE (13:19)
[2018-02-19] MEDS ORDERED: Midazolam 2 MG/2 ML VIAL ONE (13:19)
[2018-02-19] MEDS ORDERED: Oxycodone/Acetaminophen 5/325 mg Tab PO PRN (15:07)
[2018-02-19] MEDS ORDERED: Sodium Chloride 0.45% 1,000 ML IV SCH (15:15)
[2018-02-19 16:11] VITALS: RESP 18; TEMP 98.3
[2018-02-19 16:35] VITALS: BP 144/48; PULSE 50; O2SAT 93
--- NOTE | 2018-02-19 19:24 | US ---
PROCEDURE: Ultrasound-guided left thyroid fine needle aspiration biopsy. CLINICAL HISTORY: Multinodular goiter. 2.4 cm dominant left lower pole thyroid nodule. Evaluate for malignancy. PHYSICIAN(S): Israel Murry M.D. TECHNIQUE: The relative risks and indications for the procedure were explained to the patient and consent obtained. The patient was placed supine on the stretcher with the neck extended and preliminary sonography of the thyroid performed. This reveal 2.4 cm heterogeneous nodule in the left lower pole. Multiple smaller additional nodules are seen bilaterally The neck was prepped and draped in the usual sterile fashion. Conscious sedation and monitoring were provided throughout the procedure by a nurse. 1% Xylocaine was used to anesthetize the skin and soft tissues at the access site. Three passes with a 22-gauge needle were performed under ultrasound guidance for fine needle aspiration of the 2.4 cm left lower pole nodule. The slides were reviewed by pathology and deemed adequate. The patient tolerated the procedure well. IMPRESSION: 1. Ultrasound guided fine needle aspiration of a 2.4 cm dominant nodule the left lower pole
== END 2018-02-19 16:35 | disposition home or self-care (01) ==
LOC: SDS 10:27
PROVIDERS: ATTEND Radiology Vascular & Interventional Radiology
DX: E04.1 Nontoxic single thyroid nodule (principal); I10 Essential (primary) hypertension; I25.10 Atherosclerotic heart disease of native coronary artery without angina pectoris; I25.2 Old myocardial infarction; E11.9 Type 2 diabetes mellitus without complications; E66.9 Obesity, unspecified; E78.5 Hyperlipidemia, unspecified; M81.0 Age-related osteoporosis without current pathological fracture; M19.90 Unspecified osteoarthritis, unspecified site; R63.4 Abnormal weight loss; Z98.42 Cataract extraction status, left eye; Z98.41 Cataract extraction status, right eye; Z90.710 Acquired absence of both cervix and uterus; Z68.38 Body mass index [BMI] 38.0-38.9, adult
CPT/HCPCS: 10022; 36415; 80048; 85025; 85610; 85730; 88173; 99152; J2250; J2405; J3010; J7030

== ENCOUNTER 2018-04-10 09:31 | Day surgery (SDC) | payer MEDICARE, MEDICAID ==
[2018-04-10 10:15] LABS: BASO # 0.04 K/mm3 (0.0-2.0); BASO % 0.8 % (0.0-3.0); EOS # 0.1 (0.0-0.7); EOS % 2.1 % (1.5-5.0); GRAN # 1.8 (1.4-6.5); GRAN % 37.6 % (50.0-68.0); LYMPH # 2.3 (1.2-3.4); LYMPH % 48.9 % (22.0-35.0); MEAN CORPUSCULAR HEMOGLOBIN 28.3 pg (25.0-35.0); MEAN CORPUSCULAR HGB CONC 32.5 g/dl (31.0-37.0); MEAN PLATELET VOLUME 9.3 fl (7.0-11.0); MONO # 0.5 (0.1-0.6); MONO % 10.6 % (1.0-6.0); RBC 4.24 10^6/uL (3.5-6.1); RED CELL DISTRIBUTION WIDTH 12.4 % (11.5-14.5); WHITE BLOOD COUNT 4.8 10^3/ul (4.5-11.0)
[2018-04-10 10:24] LABS: INR 0.97; PARTIAL THROMBOPLASTIN TIME 32.1 Seconds (25.1-36.5); PROTHROMBIN TIME 11.1 SECONDS (9.4-12.5)
[2018-04-10 10:29] LABS: ALB/GLOB RATIO 1.1 (1.1-1.8); ALT/SGPT 18 U/L (7-56); AMYLASE 61 U/L (35-125); AST/SGOT 23 U/L (14-36); BLOOD UREA NITROGEN 19 mg/dL (7-21); CALCIUM 9.5 mg/dL (8.4-10.5); GAMMA GLUTAMYL TRANSPEPTIDASE 17 U/L (8-78); GFR NON-AFRICAN AMERICAN > 60; LIPASE 30 U/L (23-300)
[2018-04-10] MEDS ORDERED: Propofol 10 mg/ml Inj (20 ML) ONE ×2 (13:37→14:43)
[2018-04-10] MEDS ORDERED: Midazolam 2 MG/2 ML VIAL ONE (13:37)
[2018-04-10] MEDS ORDERED: Etomidate 20 mg/10ml Inj IV ONE (13:38)
[2018-04-10] MEDS ORDERED: Sodium Chloride 0.9% 1,000 ML IV SCH (15:30)
[2018-04-10 16:18] VITALS: RESP 18; TEMP 97.8
[2018-04-10 17:26] VITALS: BP 130/70; PULSE 70; O2SAT 98
== END 2018-04-10 17:30 | disposition home or self-care (01) ==
LOC: ENDO 09:31
PROVIDERS: ATTEND Internal Medicine Gastroenterology
DX: R59.0 Localized enlarged lymph nodes (principal); R10.13 Epigastric pain; M32.9 Systemic lupus erythematosus, unspecified; E11.9 Type 2 diabetes mellitus without complications; E78.5 Hyperlipidemia, unspecified; I10 Essential (primary) hypertension
CPT/HCPCS: 36415; 43242; 80053; 82150; 82977; 83690; 85025; 85610; 85730; 88173; J2001; J2250; J2704; J3010; J7030; J7040; J7120

== ENCOUNTER 2018-09-14 10:10 | Outpatient (CLI) | payer MEDICARE, MEDICAID | END 2018-09-14 10:11 | disposition home or self-care (01) | LOC: LAB 10:10 ==

== ENCOUNTER 2018-11-29 09:10 | Outpatient (CLI) | payer MEDICARE, MEDICAID | END 2018-11-29 09:11 | disposition home or self-care (01) | LOC: RAD 09:10 | DX: Z12.31 Encounter for screening mammogram for malignant neoplasm of breast (principal) ==

== ENCOUNTER 2018-12-03 10:12 | Outpatient (CLI) | payer MEDICARE, MEDICAID | END 2018-12-03 10:13 | disposition home or self-care (01) | LOC: RAD 10:12 ==

== ENCOUNTER → 2018-12-18 | Outpatient (CLI) | payer MEDICARE, MEDICAID | LOC: RAD 09:17 ==

== ENCOUNTER 2018-12-21 10:04 | Outpatient (CLI) | payer MEDICARE, MEDICAID | END 2018-12-21 10:05 | disposition home or self-care (01) | LOC: RAD 10:04 ==